=== PATIENT | male | born 1990 | race Caucasian/White ===

== ENCOUNTER 2021-06-06 09:58 | Outpatient (CLI) | payer OTHER, SELFPAY ==
--- NOTE | 2021-06-06 11:12 | NEURO ---
NCS and/or EMG Patient Report Ordering Doctor: Ag Winn DATE OF SERVICE: 06/06/21 Indication: History of left ulnar neuropathy across the elbow status post decompressive surgery. Now has intermittent numbness of the 4th and 5th digits on the right. Evaluate for ulnar neuropathy. Findings: Nerve conduction studies were performed in the right upper extremity. The right median motor study recording the abductor pollicis brevis showed a normal amplitude, normal distal latency and normal conduction velocity. The right ulnar motor study recording the abductor digiti minimi showed a normal amplitude, normal distal latency and normal conduction velocity. No conduction block or focal slowing was present across the elbow. The right ulnar motor study recording the first dorsal interosseous showed a normal amplitude, normal distal latency and normal conduction velocity. No conduction block or focal slowing was present across the elbow. The right median sensory response recording digit two showed a normal amplitude, latency and conduction velocity. The right ulnar sensory response recording digit five showed a normal amplitude, latency and conduction velocity. The right radial sensory response recording over the extensor snuff box showed a normal amplitude, latency and conduction velocity. Needle EMG of the right upper extremity and cervical paraspinal muscles was performed. No denervation was seen in any muscle. All motor unit morphology, activation and recruitment patterns were normal. Impression: This is a normal study. There is no electrophysiologic evidence of ulnar neuropathy across the elbow. In addition, there is no electrophysiologic evidence of a cervical radiculopathy or other entrapment neuropathy in the right upper extremity. Please note: electrodiagnostic testing may be unrevealing with symptoms are intermittent. Presumably, in these patients, compression results in pain and paresthesias from ischemia, but without any fixed demyelination or axonal loss that can be demonstrated on electrodiagnostic studies. Thus, clinical correlation is required in the interpretation of this negative study. Leonel Gupta D.O. Multi Select Codes Neurology Neurology Interp Codes: 23258-10 Musc test done w/n test comp (interp) and 35984-55 Nr cndj tst 5-6 studies (interp)
== END 2021-06-06 23:59 | disposition home or self-care (01) ==
LOC: PSN 10:08
PROVIDERS: Referring Provider Specialist; Visit Provider Specialist
DX: G56.21 Lesion of ulnar nerve, right upper limb (principal)
CPT/HCPCS: 95886; 95909

== ENCOUNTER 2024-02-04 20:36 | Emergency (ER) | payer OTHER, SELFPAY ==
[2024-02-04 20:37] VITALS: BP 160/76; PULSE 90; RESP 16; TEMP 37.9; O2SAT 95; BMI 24.6
--- NOTE | 2024-02-04 22:14 | RAD_ITS ---
STUDY: X-RAY CHEST REASON FOR EXAM: Male, 33 years old. chest pain TECHNIQUE: Single AP portable view of the chest. COMPARISON: 09/21/2010. FINDINGS: Normal lung volumes. Density in the right lung base seen consistent with pneumonia. Left lung is clear. Normal size heart. Normal mediastinum and diandra. Normal visualized pulmonary arteries. Normal visualized aortic arch and descending thoracic aorta. Normal visualized thoracic spine. Normal visualized ribs, clavicles, and shoulders. There is no demonstrated abnormality of the visualized soft tissue structures of the upper abdomen. RAD/Chest 1 View (Portable) IMPRESSION: Density in the right lung base seen consistent with pneumonia. Electronically Signed: Hugo Blakely MD at 22:47 EDT ,
[2024-02-04 22:28] LABS: Absolute Lymphocyte Count 0.87 X10^3/uL (0.83-4.51); Absolute Neutrophil Count 3.5 X10^3/uL (2.0-7.7); Basophil# 0.02 X10^3/uL; Basophil% 0.4 % (0-1); Hematocrit 42.3 % (40-54); Hemoglobin 14.8 g/dL (13.0-16.5); Lymphocyte # 0.87 X10^3/ul (0.83-4.51); Lymphocyte % 17.5 % (19-41); Mean Corpuscular Hgb 29.1 pg (27.0-32.0); Mean Corpuscular Volume 83.3 fL (80-94); Mean Platelet Vol. 11.1 fl (6.2-12.0); Monocyte# 0.56 X10^3/uL; Monocyte% 11.2 % (0-10); NRBC Flagged by Analyzer 0 % (0-5); Neutrophil # 3.52 X10^3/uL (2.7-7.7); Neutrophil % 70.7 % (47-70); Platelet Count 113 K/mm3 (150-450); RBC Distribution Width SD 39.6 fl (35.1-43.9); Red Blood Count 5.08 M/mm3 (4.6-6.2)
[2024-02-04 22:36] VITALS: BP 112/74; PULSE 78; RESP 18; TEMP 38.2; O2SAT 92
[2024-02-04 22:47] LABS: ALB/GLOB Ratio 0.8 RATIO (0.9-2.4); AST(SGOT) 41 U/L (15-37); Alanine Aminotransfer ALT/SGPT 26 U/L (16-61); Albumin, Serum 3.4 g/dL (3.2-5.0); Alkaline Phosphatase 54 U/L (45-117); Anion Gap 9 (5-15); BUN 14 mg/dL (7-18); BUN/Creat Ratio 12.3 RATIO (10-20); Calcium,Total 8.8 mg/dL (8.5-10.1); Chloride 96 mmol/L (98-107); Creatinine, Serum 1.14 mg/dL (0.70-1.30); EST Glomerular Filtration Rate 79 mL/min (>60); Est Glom Filt Rate - Afr Amer 96 mL/min (>60); Estimated Creatinine Clearance 96.05 ml/min; Globulin 4.1 g/dL (2.2-4.2); Glucose 115 mg/dL (74-106); Potassium 3.5 mmol/L (3.5-5.1); Protein, Total 7.5 g/dL (6.4-8.2); Sodium Level 132 mmol/L (136-145); Troponin-I HS 14 pg/mL (3.0-78.0)
[2024-02-04] MEDS: Ketorolac 30 MG/ML Syringe IV (23:04)
[2024-02-04] MEDS: 0.9% Normal Saline (1000mL) 1,000 ML 999 ML IV (23:04)
[2024-02-04] MEDS: Ondansetron 4 MG/2 ML Vial IV (23:04)
[2024-02-04] MEDS: Ceftriaxone 1 GM/50 ML BAG IV (23:04)
--- OUTSIDE RECORDS SUMMARY | 2024-02-04 23:14 | XMS RPT_ITS | CCD ---
Author Organization [facility] Care Team Providers Care Rn Quality Name Role Phone PHYSICIAN, NONE Primary Care Physician Unavailab le Allergies Allergy Classification Reported Allergen(s) Allergy Type Date of Onset Reaction(s) Facility (2 sources) Amoxicillin / Clavulanate; Translations: [amoxicillin-cla vulanate] Drug Allergy Swelling of throat [facility] Work Phone: (2 sources) Promethazine; Translations: [promethazine] Drug Allergy Swelling of throat [facility] Work Phone: Vital Signs Date Time Vital Sign Value Performing Clinician Faci lity 05-31-2021 14:50-0500 Diastolic Blood Pressure NBP [address] AMARIS KWAN MD [facility] 05-31-2021 14:50-0500 Heart rate 66 /min DR AMARIS KWAN MD [facility] 05-31-2021 14:50-0500 Respiratory rate 16 /min DR AMARIS KWAN MD [facility] 05-31-2021 14:50-0500 Systolic Blood Pressure NBP [address] AMARIS KWAN MD [facility] 05-31-2021 14:33-0500 Diastolic Blood Pressure NBP [address] AMARIS KWAN MD [facility] 05-31-2021 14:33-0500 Heart rate 68 /min DR AMARIS KWAN MD [facility] 05-31-2021 14:33-0500 Respiratory rate 13 /min DR AMARIS KWAN MD [facility] 05-31-2021 14:33-0500 Systolic Blood Pressure NBP [address] AMARIS KWAN MD [facility] 05-31-2021 14:20-0500 Diastolic Blood Pressure NBP [address] AMARIS KWAN MD [facility] 05-31-2021 14:20-0500 Heart rate 55 /min DR AMARIS KWAN MD [facility] 05-31-2021 14:20-0500 Respiratory rate 10 /min DR AMARIS KWAN MD [facility] 05-31-2021 14:20-0500 Systolic Blood Pressure NBP [address] AMARIS KWAN MD [facility] 05-31-2021 13:37-0500 Body temperature 32 [degF] DR AMARIS KWAN MD [facility] 05-31-2021 11:51-0500 Body height 180.[address] AMARIS KWAN MD [facility] 05-31-2021 11:51-0500 Body temperature 98.78 [degF] DR AMARIS KWAN MD [facility] 05-31-2021 11:51-0500 Body weight [address] AMARIS KWAN MD [facility] 05-31-2021 11:51-0500 Diastolic blood pressure 77 mm[Hg] DR AMARIS KWAN MD [facility] 05-31-2021 11:51-0500 Heart rate 62 /min DR AMARIS KWAN MD [facility] 05-31-2021 11:51-0500 Systolic blood pressure 133 mm[Hg] DR AMARIS KWAN MD [facility] 05-17-2021 12:47-0500 Body height 180.[address] AMARIS KWAN MD [facility] 05-17-2021 12:47-0500 Body weight [address] AMARIS KWAN MD [facility] 05-17-2021 12:47-0500 Body weight 23.07 kg/m2 DR AMARIS KWAN MD [facility] 05-17-2021 12:47-0500 diastolic 76 mm[Hg] DR AMARIS KWAN MD [facility] 05-17-2021 12:47-0500 Heart rate 56 /min DR AMARIS KWAN MD [facility] 05-17-2021 12:47-0500 Respiratory rate 20 /min DR AMARIS KWAN MD [facility] 05-17-2021 12:47-0500 systolic 122 mm[Hg] DR AMARIS KWAN MD [facility] Encounters Encounter Date Encounter Type Care Provider Facility Start: 05-31-2021 End: 05-31-[address] AMARIS KWAN MD [facility] Start: 05-17-2021 End: 05-17-[address] AMARIS KWAN MD [facility] Procedures Date Procedure Procedure Detail Performing Clinician Extraction of wisdom tooth D R AMARIS KWAN MD Tonsillectomy DR AMARIS MOTA MD Social History Date Type Detail Facility Start: 05-17-2021 Never smoked t obacco (finding) [facility] Sex Assigned At Male [facility] Evaluation + Plan note Note Date & Type Note Facility Evaluation + Plan note Future Appointments [facility] Hospital course Narrative Note Date & Type Note Facility Hospital course Narrative No data available for this section [facility] Discharge instructions Note Date & Type Note Facility Hospital Discharge instructions No data available for this section [facility] Additional Source Comments FOR RECORDS PERTAINING TO PATIENTS WHO ARE OR HAVE BEEN ENROLLED IN A CHEMICAL DEPENDENCY/SUBSTANCEABUSE PROGRAM, SOME INFORMATION MAY BE OMITTED. This clinical summary was aggregated from multiple sources. Caution should be exercised in using it in the provision of clinical care. This summary normalizes information from multiple sources, and as a consequence, information in this document may materially change the coding, format and clinical context of patient data. In addition, data may be omitted in some cases. CLINICAL DECISIONS SHOULD BE BASED ON THE PRIMARY CLINICAL RECORDS. [facility]. provides no warranty or guarantee of the accuracy or completeness of information in this document.
[2024-02-04 23:15] LABS: Squamous Epithelial Cells - UA 0 SEEN /hpf (0-5)
[2024-02-04 23:17] LABS: Color, Urine Yellow (Yellow); Glucose, Dipstick Normal (Normal); Ketone-Dipstick 5 mg/dl (Negative); Leukocyte Esterase-Dipstick 25 /ul (Negative); Nitrite-Dipstick Negative (Negative); Occult Blood-Urine 10 /ul (Negative); Protein-Dipstick 100 mg/dl (Negative); Urine Bilirubin Dipstick Negative (Negative); Urine Clarity Clear (Clear); Urine Urobilinogen 4 mg/dl (Normal)
[2024-02-04 23:22] LABS: Mucous, Urine 1+ /hpf (<or=2+)
[2024-02-04 23:23] LABS: Bacteria 1+ /hpf (None Seen); Calcium Oxalate Crystals Ur RARE /hpf (<or=2+); Red Blood Cells-Urine 0-5 SEEN /hpf (0-5); White Blood Cells 0-5 SEEN /hpf (0-5)
[2024-02-04] MEDS: Azithromycin 500 MG in Dextrose 5%-Water (250mL Bag) 250 ML 250 MG IV (23:52)
[2024-02-05] VITALS: BP 122/68; PULSE 77; RESP 18; TEMP 37.3; O2SAT 93
--- NOTE | 2024-02-05 00:38 | EX.ED.DYSGE1 ---
HPI History of Present Illness Chief Complaint: Nausea/Vomiting Informant: patient and spouse/S.O. 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 He reports that over the past 3 to 5 days he has had mild congestion and cough as well as bouts of nausea and vomiting and low-grade fever. He reports multiple children at school have been sick. He reports he has been taking Tylenol and Motrin for fever control but has been having recurrent bouts of vomiting and as his symptoms are not resolving presents for evaluation. PFSH PFSH no medical history Home Medications ?Medication ?Instructions ?Recorded ?Last Taken ?Type Allergy shots OTHER 07/26/23 Unknown History azithromycin 250 mg tablet See Rx Instructions PO .COMPLEX #6 02/05/24 Unknown Rx (Zithromax Z-Ravi) tabs ondansetron 4 mg disintegrating 4 mg PO TID PRN nausea and 02/05/24 Unknown Rx tablet vomiting #21 tabs Allergy/AdvReac Type Severity Reaction Status Date / Time Seasonal Allergies: Uncoded Allergy Mild unkown Verified 02/04/24 20:39 amoxicillin (From Augmentin) Allergy Unknown PT UNSURE Verified 02/04/24 20:39 OF REACTION clavulanic acid (From Allergy Unknown PT UNSURE Verified 02/04/24 20:39 Augmentin) OF REACTION Family History Mother Age: 54 Depression Hypertension Father Age: 61 Alcoholism Depression Hypertension Brother Age: 39 Alcoholism Depression Hypertension Brother Age: 30 Kidney disease Alcoholism Depression Hypertension Grandmother Age: 82 Anxiety CVA (cerebral vascular accident) Grandfather Depression Suicide attempt CVA (cerebral vascular accident) Grandmother Diabetes Alcoholism Depression Heart disease Mental disorder Suicide attempt Hypertension Surgical History H/O wisdom tooth extraction S/P vasectomy (06/14/22) History of surgery on arm (05/17/21) History of tonsillectomy (04/16/99) History of colonoscopy (04/16/15) Social History (Updated 07/26/23 @ 13:[address] 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/ [employer] current occupational exposures/hazards: No pets and animals: No history of recent travel: No sexually active: Yes Smoking Status: Never smoker Electronic Cigarette Use: not used how long ago did patient quit smoking: second hand exposure alcohol intake: former details: never heavy drinker substance use type: does not use caffeine: No perla/oriental orthodox: AGNOSTIC seatbelt use: always do you feel safe at home: Yes ROS ROS ED Constitutional Constitutional ED: Reports chills and fever(s) Eyes Eyes: Denies change in vision ENT ENT ED: Reports rhinorrhea and sore throat Cardiovascular Cardiovascular: Denies chest pain Respiratory/Chest Respiratory/Chest: Reports cough; Denies dyspnea Gastrointestinal Gastrointestinal: Reports abdominal pain, diarrhea, nausea and vomiting Genitourinary Genitourinary ED: Denies dysuria Musculoskeletal Musculoskeletal: Reports myalgias Integumentary Denies rash Neurologic Neurologic: Reports headache(s) Hematologic/Lymphatic Hematologic/Lymphatic: Denies easy bleeding or easy bruising Allergic/Immunologic Allergic/Immunologic ED: Denies mouth swelling or tongue swelling EXAM Physical Exam Const Vital Signs: 02/04/24 20:37 02/04/24 22:36 02/04/24 22:52 Temperature 100.2 F H 100.7 F H Temperature Source Oral Oral Pulse Rate 90 78 Respiratory Rate 16 18 Respiratory Effort Normal Respiratory Depth Normal Respiratory Pattern Normal Blood Pressure 160/76 H 112/74 Blood Pressure Mean 104 86 Pulse Ox 95 92 Oxygen Delivery Method Room Air Room Air Room Air 02/05/24 00:00 Temperature 99.2 F H Temperature Source Oral Pulse Rate 77 Respiratory Rate 18 Respiratory Effort Respiratory Depth Respiratory Pattern Blood Pressure 122/68 H Blood Pressure Mean 86 Pulse Ox 93 Oxygen Delivery Method Room Air Positive well nourished and well developed General Appearance ED: well developed; Negative for pallor HEENT Reports dry mucous membranes HEENT Narrative: Mucous membranes are dry and tacky No tongue or lip swelling no oral lesions no airway edema or compromise No secondary findings in the posterior pharynx to suggest infection Mouth ED: Yes dry mucous membranes Mouth: dry mucous membranes Eyes PERRL and EOMs intact bilaterally General Eye ED: Negative for scleral icterus Neck supple Neck Narrative: No nuchal rigidity or meningeal signs noted Chest Wall palpation of chest normal Resp normal respiratory effort Resp Narrative: Breath sounds are slight diminished throughout with faint rhonchi noted in the bilateral lower lobes greatest on the right but no signs of respiratory distress Cardio regular rate and regular rhythm GI non-distended and no masses GI Narrative: Abdomen is soft and nondistended with hyperactive bowel sounds. Patient has mild pain with palpation in the right upper quadrant but no voluntary guarding or rigidity. Negative Ladd sign. No pulsatile mass Auscultation: hyperactive bowel sounds Palpation: soft Extremity normal to inspection Extremity Narrative: No asymmetric edema no pitting edema negative Homans' sign bilaterally Neuro oriented x3, CN's II-XII intact bilaterally and no sensory deficits noted Sensorium / Orientation: alert Motor Exam: strength 5/5 throughout Psych mental status grossly normal Skin no rashes or lesions noted and skin turgor normal General Skin Exam: Negative for jaundice or pallor MDM MDM MDM Narrative Medical decision making narrative: Patient arrived to ER with low-grade fever and his constellation of symptoms could be related to pneumonia versus a viral infection such as COVID versus influenza versus RSV. There is also concern this could be stomach in nature such as biliary colic versus acute cholecystitis. As he does show physical exam findings for mild dehydration there is also concern for acute kidney injury or severe electrolyte abnormality. Basic labs were obtained and revealed no clinically significant finding. Chest x-ray revealed a right lower lobe infiltrate which could also cause his GI issues and right upper quadrant pain and his COVID test was positive indicating this is most likely COVID-pneumonia. However as COVID typically has a groundglass appearance and this is localized to the right lower lobe and the patient is around school-aged children there is also concern he may have secondary mycoplasma. Therefore I do feel would be appropriate to place him on a Zithromax secondary to this but as he does not have any medical history he is not qualified for Paxlovid. At this time he is not hypoxic or in respiratory distress he does not have physical exam or laboratory findings concerning for septicemia and we have a reason for his symptoms and therefore he is otherwise safe for discharge with symptomatic care History & Record Review Discussion w/independent historian: Patient and Significant other Lab Data Attestation: I reviewed the patient's lab results. Labs: Laboratory Results - last 24 hr 02/04/24 02/04/24 20:55 23:10 WBC 5.0 RBC 5.08 Hgb 14.8 Hct 42.3 MCV 83.3 MCH 29.1 MCHC 35.0 RDW Std Deviation 39.6 RDW Coeff of [place] 13.0 Plt Count 113 L MPV 11.1 Immature Gran % (Auto) 0.200 Neut % (Auto) 70.7 H Lymph % (Auto) 17.5 L [place] % (Auto) 11.2 H Eos % (Auto) 0.0 Baso % (Auto) 0.4 Absolute Neuts (auto) 3.5 Absolute Lymphs (auto) 0.87 Nucleated RBC % 0 Sodium 132 L Potassium 3.5 Chloride 96 L Carbon Dioxide 27.0 Anion Gap 9 BUN 14 Creatinine 1.14 Estim Creat Clear Calc 96.05 Est GFR (MDRD) Af Amer 96 Est GFR (MDRD) Non-Af 79 BUN/Creatinine Ratio 12.3 Glucose 115 H Calcium 8.8 Total Bilirubin 0.40 AST 41 H ALT 26 Alkaline Phosphatase 54 Troponin I High Sens 14 Total Protein 7.5 Albumin 3.4 Globulin 4.1 Albumin/Globulin Ratio 0.8 L Urine Color Yellow Urine Clarity Clear Urine pH 6.0 Ur Specific [place] 1.020 Urine Protein 100 H Urine Glucose (UA) Normal Urine Ketones 5 H Urine Occult Blood 10 H Urine Nitrite Negative Urine Bilirubin Negative Urine Urobilinogen 4 H Ur Leukocyte Esterase 25 H Urine RBC 0-5 SEEN Urine WBC 0-5 SEEN Ur Squamous Epith Cells 0 SEEN Calcium Oxalate Crystal RARE Urine Bacteria 1+ Urine Mucus 1+ Radiography Diagnostic Testing: Clinical Impression(s) from Imaging Studies Chest X-Ray 02/04/24 22:14 IMPRESSION: Density in the right lung base seen consistent with pneumonia. Electronically Signed: Hugo Blakely MD at 22:47 EDT , Chest x-ray as interpreted by the emergency medicine physician reveals haziness in the right lower lobe consistent with pneumonia Discharge Plan Triage Chief Complaint: Nausea/Vomiting ED Provider: Benji Palacios Dx/Rx/DC Orders Clinical Impression: COVID-19, Right lower lobe pneumonia, Pyrexia, Mild dehydration Instructions: Coronavirus Disease 2019 (COVID-19): Caring for Yourself or Others, ED Pneumonia (Adult) Prescriptions: New azithromycin [Zithromax Z-Ravi] 250 mg tablet See Rx Instructions .ROUTE .COMPLEX Qty: 6 0RF Rx Instructions: For 250 mg dose pack: take 500 mg today (day 1), then 250 mg for 4 days (days 2-5) ondansetron 4 mg tablet,disintegrating 4 mg PO TID PRN (Reason: nausea and vomiting) Qty: 21 0RF No Action Allergy shots OTHER Primary Care Provider: Genevieve Hercules Referrals: Genevieve Hercules MD [Primary Care Provider] - Print Language: Macedonian Disposition Disposition: Home, Self Care Discharge Date/Time: 02/05/24 01:54
[2024-02-05 01:51] VITALS: BP 121/7; PULSE 74; RESP 18; TEMP 37.7; O2SAT 98
== END 2024-02-05 01:54 | disposition home or self-care (01) ==
PROVIDERS: Emergency Provider Emergency Medicine; PCP Internal Medicine; Visit Provider Emergency Medicine
DX: U07.1 COVID-19 (principal); J12.82 Pneumonia due to coronavirus disease 2019; E86.0 Dehydration; Z88.0 Allergy status to penicillin; Z88.1 Allergy status to other antibiotic agents
CPT/HCPCS: 71045; 80053; 81001; 84484; 85025; 87631; 96365; 96366; 96374; 96375; 99284; J7030; A4216; J2405

== ENCOUNTER 2024-12-17 12:25 | Day surgery (SDC) | payer OTHER, SELFPAY ==
[2024-12-17] VITALS (8 sets, daily range): BP systolic 113–148; BP diastolic 60–84; PULSE 60–80; RESP 16–18; TEMP 36.1–36.5; O2SAT 89–100; BMI 25.2
[2024-12-17] MEDS: Lactated Ringers 1,000 ML 15 ML IV (12:56)
--- NOTE | 2024-12-17 13:13 | PCM.PRE.AN2 ---
ASA Classification* ASA Classification ASA Classification: 1 Assessment & Plan Anesthesia* Anesthesia Assessment Anesthesia Assessment: Discussed sedation and/or anesthesia options, risks, benefits, and alternatives with patient/parents/legal guardian/POA. Questions invited. The patient/parents/legal guardian/POA seems to understand and agrees to proceed with anesthesia plan. Reviewed the physical assessment, medical history, allergy history and patient home medications list prior to surgery/procedure/anesthetic and documented any changes. Performed airway and anesthesia risk assessments. Anesthesia Type Anesthesia Type: General History Source History Obtained from:: Patient and Chart Anesthesia Focused Assessment* Temperature: 97.6 F Pulse Rate: 65 Blood Pressure: 113/81 Respiratory Rate: 16 Pulse Ox: 98 Airway Assessment Mouth opens: >3 cm Mallampati Score: II Teeth Condition: Intact Neck Range of motion (ROM): Full ROM Labs Anesthesia Preop lab: CBC WBC 5.0 K/mm3 (4.4-11.0) 02/04/24 20:55 02/04/24 RBC 5.08 M/mm3 (4.6-6.2) 02/04/24 20:55 02/04/24 Hgb 14.8 g/dL (13.0-16.5) 02/04/24 20:55 02/04/24 Hct 42.3 % (40-54) 02/04/24 20:55 02/04/24 Plt Count 113 K/mm3 (150-450) L 02/04/24 20:55 02/04/24 CHEMISTRY Potassium 3.5 mmol/L (3.5-5.1) 02/04/24 20:55 02/04/24 Sodium 132 mmol/L (136-145) L 02/04/24 20:55 02/04/24 BUN 14 mg/dL (7-18) 02/04/24 20:55 02/04/24 Creatinine 1.14 mg/dL (0.70-1.30) 02/04/24 20:55 02/04/24 Glucose 115 mg/dL (74-106) H 02/04/24 20:55 02/04/24 COAG Pre-Assessment Diagnosis/Proposed Procedure Planned Operative Procedure(s): OPEN UMBILICAL HERNIA REPAIR Anesthesia History Anesthesia History - supervisor contact and service clerks: Anesthesia History - supervisor contact and service clerks Hx Hospitalization No 12/08/24 13:18 Any Problems With Anesthesia No 12/08/24 13:18 Cholinesterase deficiency No 12/08/24 13:18 You/Your Family Experience No 12/08/24 13:18 fever (hyperthermia) with Relationship Recent Exposure to Contagious No 12/17/24 12:46 Disease Does patient have nerve No 12/08/24 13:18 stimulator Patient instructed to have device shut off --Does patient have Pacemaker No 12/17/24 12:46 or ICD? When Was Last Pacemaker Check QUESTION #4 FULL TEXT: You/Your Family Experience fever (hyperthermia) with Anesthesia Last Oral Intake Last Oral intake: Last Oral Intake NPO since 19:00 12/17/24 12:46 Meds taken in AM with sips of No 12/17/24 12:46 water? Meds patient instructed to take am of surgery PONV PONV - supervisor contact and service clerks: PONV - supervisor contact and service clerks Female No 12/08/24 13:18 HX of Motion Sickness Yes 12/08/24 13:18 HX of N/V After Surgery No 12/08/24 13:18 Non-Smoker Yes 12/08/24 13:18 Duration of Surgery greater No 12/08/24 13:18 than 60 minutes Number of Risk Factors 2 12/08/24 13:18 PONV Score Moderate Risk 12/08/24 13:18 Height & Weight Height & Weight: Anesthesia: Height & Weight Height 5 ft 10.08 in 12/17/24 12:46 Weight: 80 kg 12/17/24 12:46 Body Mass Index (BMI) 25.2 12/17/24 12:46 Respiratory Assessment Respiratory Assessment - supervisor contact and service clerks: Respiratory Tract Infection Hx - supervisor contact and service clerks Hx Respiratory Tract Infection No 12/08/24 13:18 STOP Sleep Apnea STOP Sleep Apnea - supervisor contact and service clerks: STOP Sleep Apnea - supervisor contact and service clerks Hx Hypertension No 12/08/24 13:18 Hx Sleep Apnea No 12/08/24 13:18 CPAP BIPAP Do you snore loudly (louder No 12/08/24 13:18 than talking or can be heard Do you often feel tired/ No 12/08/24 13:18 fatigued/ sleepy during daytime? Has anyone observed you stop No 12/08/24 13:18 breathing during sleep? STOP Results Negative 12/08/24 13:18 QUESTION #5 FULL TEXT : Do you snore loudly (louder than talking or can be heard through closed doors)? Tobacco Use History Tobacco Use History - supervisor contact and service clerks: Tobacco Use History - supervisor contact and service clerks Tobacco Use Smoking Status Never smoker 12/08/24 13:18 Hx Tobacco Use No 12/08/24 13:18 Years Smoking Packs Smoked per Day Smoking Cessation Date was within the last 15 years Hx Smoking Cessation Date Hx Smoking Cessation Counseling Hematologic Medial History Hematologic Hx - supervisor contact and service clerks: Hematologic Medical Hx - financial services auditor Hx of Blood Transfusion No 12/08/24 13:18 Hx of Transfusion in last 3 No 12/08/24 13:18 Months Date of Last Transfusion (if within last 3 months) Ever experience any problems No 12/08/24 13:18 with transfusion(s)? Specify any problems Hx of Preganancy in last 3 N/A 12/08/24 13:18 Months Nurse Filling Out Transfusion DSCHRIBER 12/08/24 13:18 & Questions: Date: 12/08/24 12/08/24 13:18 Time: 13:19 12/08/24 13:18 Patient unable to answer at this time (ie. confused, unrespo /Reproduction History /Reproductive History - supervisor contact and service clerks: /Reproductive Hx- supervisor contact and service clerks Hx Now No 12/08/24 13:18 Gestational Age (in weeks): EDC: Hx Hx Para Hx Section SAB No 12/08/24 13:18 Active Medications Active Medications: Current Medications Generic Name Dose Route Start Last Admin Trade Name Freq PRN Reason Stop Dose Admin Lactated Ringer's 1,000 mls @ 15 mls/hr 12/17/24 12:45 12/17/24 12:56 IV 15 mls/hr .Q48H BING Administration PFSH Medical History (Updated 12/08/24 @ 13:16 by Suzy Barroso) Wears glasses Non-smoker Anxiety Home Medications ?Medication ?Instructions ?Recorded ?Last Taken ?Type CREATINE 5 mg PO DAILY 12/08/24 Unknown History Whey PROTEIN 1 tbsp PO DAILY 12/08/24 Unknown History Allergy/AdvReac Type Severity Reaction Status Date / Time Seasonal Allergies: Uncoded Allergy Mild unkown Verified 12/08/24 13:09 amoxicillin (From Augmentin) Allergy Unknown PT UNSURE Verified 12/08/24 13:09 OF REACTION clavulanic acid (From Allergy Unknown PT UNSURE Verified 12/08/24 13:09 Augmentin) OF REACTION Family History Mother Age: 55 Depression Hypertension Father Age: 63 Alcoholism Depression Hypertension Brother Age: 40 Alcoholism Depression Hypertension Brother Age: 31 Kidney disease Alcoholism Depression Hypertension Grandmother Age: 83 Anxiety CVA (cerebral vascular accident) Grandfather Depression Suicide attempt CVA (cerebral vascular accident) Grandmother Diabetes Alcoholism Depression Heart disease Mental disorder Suicide attempt Hypertension Surgical History (Updated 12/08/24 @ 13:16 by Suzy Barroso) H/O wisdom tooth extraction S/P vasectomy (06/14/22) History of surgery on arm (05/17/21) History of tonsillectomy (04/16/99) History of colonoscopy (04/16/15) Social History (Updated 12/05/24 @ 13:09 by Racquel March) adopted: No household members: family housing: house current occupational status: employed current occupational exposures/hazards: No pets and animals: No history of recent travel: No sexually active: Yes Smoking Status: Never smoker Electronic Cigarette Use: not used how long ago did patient quit smoking: second hand exposure alcohol intake: former details: never heavy drinker substance use type: does not use caffeine: No perla/nondenominational: AGNOSTIC seatbelt use: always do you feel safe at home: Yes Review of Systems (Anesthesia) ROS Narrative System reviewed and no additional complaints, except as documented. Physical Exam Const alert, oriented x3 and average body habitus Resp normal respiratory effort, normal air movement and clear to auscultation bilaterally Cardio regular rate, regular rhythm and no murmurs
--- NOTE | 2024-12-17 13:33 | PCM.HP.STD ---
HPI - General General Date of Admission: 12/17/24 Date of Service: 12/17/24 Chief Complaint: Umbilical hernia HPI Narrative ANDIE CARUSO, is a 34 M who presents for repair of a small umbilical hernia [facility] Medical History (Updated 12/08/24 @ 13:16 by Suzy Barroso) Wears glasses Non-smoker Anxiety Home Medications ?Medication ?Instructions ?Recorded ?Last Taken ?Type CREATINE 5 mg PO DAILY 12/08/24 Unknown History Whey PROTEIN 1 tbsp PO DAILY 12/08/24 Unknown History Allergy/AdvReac Type Severity Reaction Status Date / Time Seasonal Allergies: Uncoded Allergy Mild unkown Verified 12/08/24 13:09 amoxicillin (From Augmentin) Allergy Unknown PT UNSURE Verified 12/08/24 13:09 OF REACTION clavulanic acid (From Allergy Unknown PT UNSURE Verified 12/08/24 13:09 Augmentin) OF REACTION Family History Mother Age: 55 Depression Hypertension Father Age: 63 Alcoholism Depression Hypertension Brother Age: 40 Alcoholism Depression Hypertension Brother Age: 31 Kidney disease Alcoholism Depression Hypertension Grandmother Age: 83 Anxiety CVA (cerebral vascular accident) Grandfather Depression Suicide attempt CVA (cerebral vascular accident) Grandmother Diabetes Alcoholism Depression Heart disease Mental disorder Suicide attempt Hypertension Surgical History (Updated 12/08/24 @ 13:16 by Suzy Barroso) H/O wisdom tooth extraction S/P vasectomy (06/14/22) History of surgery on arm (05/17/21) History of tonsillectomy (04/16/99) History of colonoscopy (04/16/15) Social History (Updated 12/05/24 @ 13:09 by Racquel March) adopted: No household members: family housing: house current occupational status: employed current occupational exposures/hazards: No pets and animals: No history of recent travel: No sexually active: Yes Smoking Status: Never smoker Electronic Cigarette Use: not used how long ago did patient quit smoking: second hand exposure alcohol intake: former details: never heavy drinker substance use type: does not use caffeine: No perla/presybeterian: AGNOSTIC seatbelt use: always do you feel safe at home: Yes Vital Signs Vital Signs Vital Signs: 12/17/24 12:46 12/17/24 12:46 12/17/24 13:14 Temperature 97.6 F L 97.6 F L Temperature Source Temporal Pulse Rate 65 65 Respiratory Rate 16 16 Respiratory Pattern Normal Blood Pressure 113/81 H 113/81 H Blood Pressure Mean 91 Pulse Ox 98 98 Oxygen Delivery Method Room Air Weight Weight: 176 lb 5.917 oz Body Mass Index (BMI) 25.2 Physical Exam Const alert, oriented x3 and no apparent distress Assessment & Plan Assessment/Plan (1) Umbilical hernia: PLAN: Plan Plan for umbilical hernia repair surgery without mesh
[2024-12-17] MEDS: Midazolam 2 MG/2 ML Syringe IV (13:41)
[2024-12-17] MEDS: Lactated Ringers 1,000 ML 1000 ML IV (13:41)
[2024-12-17] MEDS: fentaNYL 100 MCG/2 ML Ampul IV (13:48)
[2024-12-17] MEDS: Lidocaine 1% (5 ml sdv) 5 ML Vial IV (13:48)
[2024-12-17] MEDS: Bupiv/Epi 0.25% 30 ML Vial (13:57)
--- NOTE | 2024-12-17 14:44 | EX.PCM.DISCH ---
Discharge Instructions Diet Discharge Diet: Light diet - advance as tolerated Activity Discharge Activity: Return to Normal Activity and May Shower May shower in (days): 1 Ice area for (Minutes): 30 Lifting Restrictions: No lifting pushing or pulling more than 20 pounds for 6 weeks Dressing / Incision Call your doctor if your incision/area has: Continuous Slow Oozing, Sudden Increased Bleeding, Increased Pain/ Swelling, Increased Redness, Foul Smelling Discharge and Swelling at the incision site Call your doctor if you observe: Fever of 101 or Higher Cleanse incision/area with: Soap & Water Follow Up Care Please Follow Up With: Ag Altamirano MD When: 2 weeks. Please call office to schedule appointment. Test Results: Test results from this visit will be discussed in further detail at your follow-up appointment, if applicable. Discharge Plan Admission Primary Reason for Your Visit: Umbilical hernia repair Attending Provider: Ag Altamirano Primary Care Provider: Genevieve Hercules Instructions Print Language: Prydeinig Discharge Orders/Prescriptions Prescriptions: Continued CREATINE 5 mg PO DAILY Whey PROTEIN 1 tbsp PO DAILY Referrals / Follow Up: Genevieve Hercules MD [Primary Care Provider] - Disposition Disposition (needs filled in before D/C Order can be placed): Home, Self Care
--- NOTE | 2024-12-17 14:44 | PCM.POST.ANE ---
Anesthesia: Postop Eval I Current Vital Signs Temperature: 97.4 F Pulse Rate: 79 Blood Pressure: 120/60 Respiratory Rate: 16 Pulse Ox: 93 Oxygen Delivery Method: Room Air Assessment Airway patent: Yes Spontaneous unlabored respirations: Yes Mental status: Asleep nausea: No Vomiting: No Anesthesia Complication: No Fluid Hydration Crystalloid volume administer (ml): 900 Total IV fluid infused: 900 Progress Note Anesthesia document: Postop Eval 1 completed: Yes
--- NOTE | 2024-12-17 14:48 | OP.PCM_ITS ---
Problems Associated Problem List Diagnoses (1) Umbilical hernia: Procedures Digestive [id number]-49xxx: 38934 RPR AA HRN 1ST < 3 CM [facility] Operative Report (Standard) Operative Information Date of Procedure: 12/17/24 Pre-Operative Diagnosis: Umbilical hernia Post-Operative Diagnosis: Umbilical hernia Surgery/Procedure Performed: Open primary repair of umbilical hernia child care supervisor: Yes Collar Baster Jumpbasting: Dede Mayo Tasks completed by first mate: Closing and Retracting Additional staff physical therapy assistant?: No Type of Anesthesia: General and Local RN Documented Start/Stop Times: Operation Date: 12/17/24 14:00 Case Time Into Pre-Op 12/17/24 12:40 Out of Pre-Op 12/17/24 13:38 Anesthesia Start 12/17/24 13:41 Into Room 12/17/24 13:41 Procedure Start 12/17/24 13:57 Procedure End 12/17/24 14:30 Anesthesia End 12/17/24 14:37 Out of Room 12/17/24 14:37 Into Recovery 12/17/24 14:40 Procedure Start Time: 13:57 Procedure Stop Time: 14:30 Select all DRAINS/GRAFTS/IMPLANTS that apply: None Estimated Blood Loss: 5 mL Specimen collected: No Description of surgery: The patient is a 34-year-old male recently seen through the office with a small umbilical hernia. Fascial defect size was less than a centimeter. I felt that this was appropriate for an open repair without mesh. We discussed the details of the planned procedure and he wished to proceed. He was brought to the operating room today following informed consent. He was placed supine the operative table with arms outstretched and arm boards. The abdomen was then prepped and draped in the usual sterile manner. A curvilinear incision was made around the inferior aspect of the umbilicus after injecting local anesthetic. Bovie electrocautery was then used to dissect down through the subcutaneous tissues. The skin of the umbilicus was encircled using finger dissection as well as dissection with a Kylee clamp. The skin of the umbilicus was then detached from the underlying hernia sac. The hernia sac was excised and the fascial defect edges were cleared. The fascial defect was about a centimeter slightly larger. This was certainly less than 2 cm which made primary repair appropriate. This was then closed with 0 Nurolon placed in interrupted manner. This closed the fascial defect nicely. 3-0 Vicryl was then used to reapproximate the skin of the umbilicus to the underlying fascia. 3-0 Vicryl was also used to reapproximate the subdermal layer. 4-0 Vicryl was run on the skin. Skin glue was applied as dressing. 2 x 2 along with gauze and OpSite's were applied. Abdominal binder was also placed. He was awakened anesthesia and taken recovery in good condition. Surgical Findings: 1 cm fascial defect. Fat-containing hernia Complications Complications: No Admit VTE Documentation VTE Present on Admission: No VTE Mechan Device Prophylaxis: SCD's VTE Pharm Prophylaxis ordered?: No Reason prophylaxis not ordered: Treatment Not Indicated
--- NOTE | 2024-12-17 15:15 | POSTOPAN2_ITS ---
Anesthesia Postop Eval I Sum Postop Eval Completion status Anesthesia document: Postop Eval 1 completed: Yes Anesthesia Postop Eval I Summary Anesthesia Postop Eval I Summary: Anesthesia Postop Eval I: Assessment Summary Airway patent Yes 12/17/24 14:45 [email or web address] Spontaneous unlabored Yes 12/17/24 14:45 [email or web address] respirations Mental status Asleep 12/17/24 14:45 [email or web address] nausea No 12/17/24 14:45 CUTTER [email or web address] Vomiting No 12/17/24 14:45 [email or web address] Anesthesia Postop Eval I: Fluid Summary Crystalloid volume administer 900 12/17/24 14:45 [email or web address] (ml) Colloids volume administered ( ml) Blood Product volume administered (ml) Total IV fluid infused 900 12/17/24 14:45 [email or web address] Anesthesia Postop Eval I: Summary Notes Anesthesia Complication No 12/17/24 14:45 [email or web address] Anesthesia Complication Comment: Post-operative progress note Anesthesia: Postop Eval II Evaluation Mental status: Awake Pain Level: 0 nausea: No Vomiting: No Complications Anesthesia Complication: No
--- NOTE | 2024-12-17 15:15 | PCM.POSTANE2 ---
Anesthesia Postop Eval I Sum Postop Eval Completion status Anesthesia document: Postop Eval 1 completed: Yes Anesthesia Postop Eval I Summary Anesthesia Postop Eval I Summary: Anesthesia Postop Eval I: Assessment Summary Airway patent Yes 12/17/24 14:45 [email or web address] Spontaneous unlabored Yes 12/17/24 14:45 [email or web address] respirations Mental status Asleep 12/17/24 14:45 [email or web address] nausea No 12/17/24 14:45 [email or web address] Vomiting No 12/17/24 14:45 [email or web address] Anesthesia Postop Eval I: Fluid Summary Crystalloid volume administer 900 12/17/24 14:45 [email or web address] (ml) Colloids volume administered ( ml) Blood Product volume administered (ml) Total IV fluid infused 900 12/17/24 14:45 [email or web address] Anesthesia Postop Eval I: Summary Notes Anesthesia Complication No 12/17/24 14:45 [email or web address] Anesthesia Complication Comment: Post-operative progress note Anesthesia: Postop Eval II Evaluation Mental status: Awake Pain Level: 0 nausea: No Vomiting: No Complications Anesthesia Complication: No
--- OUTSIDE RECORDS SUMMARY | 2024-12-17 22:56 | XMS RPT_ITS | CCD ---
Author Organization [facility] Care Team Providers Care Insulation Board Back Tender Name Role Phone PHYSICIAN, NONE Primary Care Physician Unavailab ania Hercules MD, Dr. Vallejo Primary Care Provider Diomedes OLIVEIRA, Dr. Vallejo Attending Provider Diomedes OLIVEIRA, Dr. Vallejo Referring Provider Adarsh OLIVEIRA, Dr. Ag Yousif Attending Provider [place], Genevieve Primary Care Unavailable Diomedes, Genevieve Referring Unavailable Diomedes, Genevieve Attending Unavailable Benji Palacios Attending Unavailable [place], Genevieve Primary Care Unavailable Diomedes, Genevieve Primary Care Unavailable Ag Altamirano Referring Unavailable Ag Altamirano Attending Unavailable [place], Genevieve Primary Care Unavailable Ag Altamirano Attending Unavailable [place], Genevieve Referring Unavailable Adarsh OLIVEIRA, Dr. Ag Yousif Referring Provider Adarsh OLIVEIRA, Dr. Ag Yousif Other Provider [phone] Allergies Allergy Classification Reported Allergen(s) Allergy Type Date of Onset Reaction(s) Facility (2 sources) Amoxicillin / Clavulanate; Translations: [amoxicillin-cl avulanate] Drug Allergy Swelling of throat [facility] (2 sources) Promethazine; Translations: [promethazine] Drug Allergy Swelling of throat [facility] (3 sources) Amoxicillin Drug Allergy 5 PT UNSURE OF REACTION [facility] Comment on above: as child (3 sources) Clavulanate Drug Allergy 5 PT UNSURE OF REACTION [facility] Comment on above: as child (4 sources) Seasonal Allergies: Uncoded; Translations: [Seasonal Allergies: Uncoded] Allergy to substance 5 unkown [facility] (1 source) Amoxicillin Drug Allergy [facility] Repository (1 source) Clavulanate Drug Allergy [facility] Repository Medications Current Medications Medication Drug Class(es) Dates Sig (Normalized) Sig (Original) Creatine (1 source) Start: 2024 take 5 mg by mouth once daily CREATINE Active 5 mg PO DAILY 2024 12:00am Whey PROTEIN (1 source) Start: 2024 Whey PROTEIN Active 1 tbsp PO DAILY 2024 12:00am Completed/Discontinued Medications Medication Drug Class(es) Dates Sig (Normalized) Sig (Original) Allergy shots (3 sources) Start: 07-26-2023 End: 2024 Allergy shots Discontinued OTHER July 26, 2023 12:00am 2024 1:23pm Start: 07-26-2023 Allergy shots Active OTHER July 26, 2023 12:00am azithromycin 250 mg oral tablet (3 sources) Macrolide Antimicrobial Start: 02-05-2024 End: 12-01-2024 Azithromycin (Zithromax Z-Ravi) 250 mg tablet Discontinued 0 PO .COMPLEX 6 0 February 05, 2024 12:00am December 01, 2024 10:56am For 250 mg dose pack: take 500 mg today (day 1), then 250 mg for 4 days (days 2-5) Creatine Monohydrate 5,000 mg powder in packet (2 sources) Start: 12-05-2024 End: 2024 Creatine Monohydrate 5,000 mg powder in packet Discontinued mg PO December 05, 2024 12:00am 2024 1:23pm Start: 12-05-2024 Creatine Monoh ydrate 5,000 mg powder in packet Active mg PO December 05, 2024 12:00am ondansetron 4 mg disintegrating oral tablet (3 sources) Serotonin-3 Receptor Antagonist Start: 02-05-2024 End: 12-01-2024 take 1 tablet by mouth three times daily as needed for nausea and vomiting Ondansetron 4 mg tablet,disintegrating Discontinued 4 mg PO THREE TIMES A DAY as needed for nausea and vomiting 21 0 February 05, 2024 12:41am December 01, 2024 10:56am Problems Active Problems Problem Classification Problem Date Documented Date Episodic/Chronic Abdominal hernia (12 sources) Umbilical hernia without obstruction AND without gangrene ; Translations: [Umbilical hernia] Onset: 12-05-2024 Episodic Fever of unknown origin (3 sources) Fever; Translations: [Fever, unspecified] 02-13-2024 Episodic Fluid and electrolyte disorders (3 sources) Mild dehydration; Translations: [Dehydration] 02-13-2024 Episodic Other screening for suspected conditions (not mental disorders or infectious disease) (4 sources) Patient encounter status; Translations: [Encounter for screening for cardiovascular disorders] 12-01-2024 Episodic Other upper respiratory disease (3 sources) Seasonal allergy; Translations: [Other seasonal allergic rhinitis] 12-01-2024 Chronic Pneumonia (except that caused by tuberculosis or sexually transmitted disease) (3 sources) Right lower zone pneumonia; Translations: [Pneumonia, unspecified organism] 02-13-2024 Episodic Unclassified (6 sources) K42.9 - Umbilical hernia without obstruction or gangrene Viral infection (3 sources) Disease caused by 2019-nCoV; Translations: [COVID-19] 02-05-2024 Episodic Past or Other Problems Problem Classification Problem Date Documented Da te Episodic/Chronic Allergic reactions (3 sources) Allergic condition; Translations: [Allergy, unspecified, initial encounter] Onset: 1990 07-26-2023 Episodic Nausea and vomiting (1 source) Nausea with vomiting, unspecified; Translations: [Nausea with vomiting, unspecified] Onset: 02-27-2024 Episodic Results Test Name Value Interpretation Reference Range Facil ity Surgery Visit Reporton 12-05 Surgery Visit Report [facility] [address] [place] [address] OFFICE VISIT Date of Service: 12/05/24 MR#: [id number] Acct: [id number] Name: ANDIE CARUSO Rep #: [id number] : 1990 Provider: Dr. Ag abbott MD Age/Sex: 33/M Location: [facility] Status: Signed Intake Vital Signs 12/01/24 10:52 12/05/24 13:09 Height 5 ft 10 in 5 ft 10 in Weight: 179 lb 6 oz 179 lb BMI 25.7 25.7 BP 112/62 154/78 H Blood Pressure Location Rt brachial Rt brachial Position Sitting Sitting Respiration 16 17 Pulse 45 L 65 Pulse Source Monitor Monitor Temp 96.4 F L Temp Source Temporal Pulse Oximetry (%) 98 99 Oxygen Delivery Method room air room air Intake Visit Reasons: UMBILICAL HERNIA Chief Complaint: hernia check Is patient in pain?: No Allergies Seasonal Allergies: Uncoded Allergy (Mild, Verified 12/05/24 13:10) unkown amoxicillin (From Augmentin) Allergy (Unknown, Verified 12/05/24 13:10) PT UNSURE OF REACTION clavulanic acid (From Augmentin) Allergy (Unknown, Verified 12/05/24 13:10) PT UNSURE OF REACTION Medications ???Medication ???Instructions ???Recorded ???Confirmed ???Type Allergy shots OTHER 07/26/23 12/05/24 History creatine monohydrate 5,000 mg oral mg PO 12/05/24 12/05/24 History powder packet PFSH Medical History (Updated 12/05/24 @ 13:09 by Racquel March) Anxiety Surgical History H/O wisdom tooth extraction S/P vasectomy (06/14/22) History of surgery on arm (05/17/21) History of tonsillectomy (04/16/99) History of colonoscopy (04/16/15) Family History Mother Age: 55 Depression Hypertension Father Age: 63 Alcoholism Depression Hypertension Brother Age: 40 Alcoholism Depression Hypertension Brother Age: 31 Kidney disease Alcoholism Depression Hypertension Grandmother Age: 83 Anxiety CVA (cerebral vascular accident) Grandfather Depression Suicide attempt CVA (cerebral vascular accident) Grandmother Diabetes Alcoholism Depression Heart disease Mental disorder Suicide attempt Hypertension Social History (Updated 12/05/24 @ 13:09 by Racquel March) adopted: No household members: family housing: house current occupational status: employed current occupational exposures/hazards: No pets and animals: No history of recent travel: No sexually active: Yes Smoking Status: Never smoker Electronic Cigarette Use: not used how long ago did patient quit smoking: second hand exposure alcohol intake: former details: never heavy drinker substance use type: does not use caffeine: No perla/religious: AGNOSTIC seatbelt use: always do you feel safe at home: Yes HPI HPI HPI: The patient is a 33-year-old male who is being seen today for evaluation of a possible umbilical hernia. He states that recently he was attempting to move a washer and dryer and noticed pain and a bulge at the umbilicus. He states that he was able to pop this back in but has had persistent discomfort in this area since. He brought this to the attention of his PCP and he was referred to general surgery for evaluation and treatment of this hernia. ROS General General: No weight change, appetite, fatigue, colon cancer, breast cancer or weakness HEENT HEENT: No difficulty swallowing, eye injury, eye surgery, swollen glands or hoarseness Endo Endocrine: No thyroid disease, diabetes mellitus, thyroid cancer, Hair loss, heat intolerance or cold intolerance Skin Skin: No rash or changing moles Musc Musculoskeletal: No back problems, arthritis, rheumatoid arthritis, gout or joint pain Cardio Cardiovascular: No murmur, pacemaker, heart disease, atrial fibrillation, high blood pressure, heart attack, heart stent, palpitations, shortness of breath with exertion or chest pain Psych Psychiatric: Yes anxiety; No depression or hearing voices Resp Respiratory: No shortness of breath, No sleep apnea, No cough, No COPD, No asthma, No emphysema and No wheezing Gastro Gastrointestinal: No abdominal pain, No nausea or vomiting, No diarrhea, No constipation, No blood in stool, No acid reflux, No hemorrhoids, No ulcers, No gallbladder problem and No black,tarry stools [facility] Hematologic: No blood thinners, No blood disorders, No bleeding, No anemia and No blood clots Neuro Neurologic: No system reviewed and no additional complaints, except as documented, No as per HPI, No abnormal gait, No abnormal hearing, No abnormal movements, No abnormal speech, No behavioral changes, No burning sensations, No confusion, No convulsions, No disequilibrium, No dizziness, No localized weakness, No frequent falls, No headache(s), No lack of member services coordinator (more content not included)... Normal [facility] Internal Medicine Office Vis ann-marie 12-01-2024 Internal Medicine Office Visit [facility] [address] [place] [address] [place] [address] OFFICE VISIT Date of Service: 12/01/24 MR#: [id number] Acct: [id number] Name: ANDIE CARUSO Rep #: [id number] : 1990 Provider: Dr. Genevieve lorenz MD Age/Sex: 33/M Location: [facility] Status: Signed Intake Vital Signs 02/04/24 20:37 12/01/24 10:52 Height 5 ft 10 in 5 ft 10 in Weight: 179 lb 6 oz BMI 25.7 BP 112/62 Blood Pressure Location Rt brachial Position Sitting Respiration 16 Pulse 45 L Pulse Source Monitor Temp 96.4 F L Temp Source Temporal Pulse Oximetry (%) 98 Oxygen Delivery Method room air Intake Visit Reasons: Possible hernia? Chief Complaint: hernia check Guidance Consultant Required: No Accompanied by: Self Is patient in pain?: Yes (without movement stretching pain at a 7) Pain scale (1-10): 2 Allergies Seasonal Allergies: Uncoded Allergy (Mild, Verified 12/01/24 10:48) unkown amoxicillin (From Augmentin) Allergy (Unknown, Verified 12/01/24 10:48) PT UNSURE OF REACTION clavulanic acid (From Augmentin) Allergy (Unknown, Verified 12/01/24 10:48) PT UNSURE OF REACTION Medications ???Medication ???Instructions ???Recorded ???Confirmed ???Type Allergy shots OTHER 07/26/23 12/01/24 History Nurse's Note: umbilical hernia possibly, stretching makes it worse pt able to reduce it but pops back out pretty quickly PFSH Surgical History H/O wisdom tooth extraction S/P vasectomy (06/14/22) History of surgery on arm (05/17/21) History of tonsillectomy (04/16/99) History of colonoscopy (04/16/15) Family History Mother Age: 55 Depression Hypertension Father Age: 63 Alcoholism Depression Hypertension Brother Age: 40 Alcoholism Depression Hypertension Brother Age: 31 Kidney disease Alcoholism Depression Hypertension Grandmother Age: 83 Anxiety CVA (cerebral vascular accident) Grandfather Depression Suicide attempt CVA (cerebral vascular accident) Grandmother Diabetes Alcoholism Depression Heart disease Mental disorder Suicide attempt Hypertension Social History (Updated 12/01/24 @ 11:[address] 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 1. Little interest or pleasure in doing things: not at all 2. Feeling down, depressed, or hopeless: not at all 3. Trouble falling or staying asleep, or sleeping too much: not at all 4. Feeling tired or having little energy: not at all 5. Poor appetite or overeating: not at all 6. Feeling bad about yourself - or that you are a failure or have let yourself and your family down: not at all 7. Trouble concentrating on things, such as reading the newspaper or watching television: not at all 8. Moving or speaking so slowly that other people could have noticed? - Or the opposite - being so fidgety or restless that you have been moving around a lot more than usual: not at all 9. Thoughts that you would be better off or of hurting yourself in some way: not at all Total score: 0 If you checked off any problems, how difficult have these problems made it for you to do your work, take care of things at home, or get along with other people?: not difficult at all Source: Developed by Drs. Rusty Torres, Sara Anaya, Aly Phillips and colleagues, with an educational martha from [employer]. NING-7 BMS NING-7 Feeling nervous, anxious, or on edge: 0 = Not at all Not being able to stop or control worryin = Not at all Worrying too much about different things: 0 = Not at all Trouble relaxin = Not at all Being so restless that it is hard to sit still: 0 = Not at all Becoming easily annoyed or irritable: 0 = Not at all Feeling afraid as if something awful might happen: 0 = Not at all Total NING-7 score (0-4 normal; 5-9 mild; 10-14 moderate; 15-21 severe): 0 Source: Developed by Drs. Rusty Torres, Sara Anaya, Aly Phillips and colleagues, with an educational martha from [employer]. HPI HPI Chief Complaint: hernia check Details: ANDIE CARUSO, is a (more content not included)... Normal [facility] Emergency Department Summary on 02-05-2024 Emergency Department Summary [facility] Medical Records Department [address] [place] [id number] Emergency Department Summary 02/05/24 MR#: [id number] Acct: [id number] Name: ANDIE CARUSO Rep #: [id number] : 1990 33 From: Benji Palacios DO PCP: Dr. Genevieve Hercules MD Status:DEP ER Location: ED HPI History of Present Illness Chief Complaint: Nausea/Vomiting Informant: patient and spouse/S.O. 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 He reports that over the past 3 to 5 days he has had mild congestion and cough as well as bouts of nausea and vomiting and low-grade fever. He reports multiple children at school have been sick. He reports he has been taking Tylenol and Motrin for fever control but has been having recurrent bouts of vomiting and as his symptoms are not resolving presents for evaluation. PFSH PFS no medical history Home Medications ???Medication ???Instructions ???Recorded ???Last Taken ???Type Allergy shots OTHER 07/26/23 Unknown History azithromycin 250 mg tablet See Rx Instructions PO .COMPLEX #6 02/05/24 Unknown Rx (Zithromax Z-Ravi) tabs ondansetron 4 mg disintegrating 4 mg PO TID PRN nausea and 02/05/24 Unknown Rx tablet vomiting #21 tabs Allergy/AdvReac Type Severity Reaction Status Date / Time Seasonal Allergies: Uncoded Allergy Mild unkown Verified 02/04/24 20:39 amoxicillin (From Augmentin) Allergy Unknown PT UNSURE Verified 02/04/24 20:39 OF REACTION clavulanic acid (From Allergy Unknown PT UNSURE Verified 02/04/24 20:39 Augmentin) OF REACTION Family History Mother Age: 54 Depression Hypertension Father Age: 61 Alcoholism Depression Hypertension Brother Age: 39 Alcoholism Depression Hypertension Brother Age: 30 Kidney disease Alcoholism Depression Hypertension Grandmother Age: 82 Anxiety CVA (cerebral vascular accident) Grandfather Depression Suicide attempt CVA (cerebral vascular accident) Grandmother Diabetes Alcoholism Depression Heart disease Mental disorder Suicide attempt Hypertension Surgical History H/O wisdom tooth extraction S/P vasectomy (06/14/22) History of surgery on arm (05/17/21) History of tonsillectomy (04/16/99) History of colonoscopy (04/16/15) Social History (Updated 07/26/23 @ 13:[address] 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 [employer] current occupational exposures/hazards: No pets and animals: No history of recent travel: No sexually active: Yes Smoking Status: Never smoker Electronic Cigarette Use: not used how long ago did patient quit smoking: second hand exposure alcohol intake: former details: never heavy drinker substance use type: does not use caffeine: No perla/religious: AGNOSTIC seatbelt use: always do you feel safe at home: Yes ROS ROS ED Constitutional Constitutional ED: Reports chills and fever(s) Eyes Eyes: Denies change in vision ENT ENT ED: Reports rhinorrhea and sore throat Cardiovascular Cardiovascular: Denies chest pain Respiratory/Chest Respiratory/Chest: Reports cough; Denies dyspnea Gastrointestinal Gastrointestinal: Reports abdominal pain, diarrhea, nausea and vomiting Genitourinary Genitourinary ED: Denies dysuria Musculoskeletal Musculoskeletal: Reports myalgias Integumentary Denies rash Neurologic Neurologic: Reports headache(s) Hematologic/Lymphati c Hematologic/Lymphati c: Denies easy bleeding or easy bruising Allergic/Immunologic Allergic/Immunologic ED: Denies mouth swelling or tongue swelling EXAM Physical Exam Const Vital Signs: 02/04/24 20:37 02/04/24 22:36 02/04/24 22:52 Temperature 100.2 F H 100.7 F H Temperature Source Oral Oral Pulse Rate 90 78 Respiratory Rate 16 18 Respiratory Effort Normal Respiratory Depth Normal Respiratory Pattern Normal Blood Pressure 160/76 H 112/74 Blood Pressure Mean 104 86 Pulse Ox 95 92 Oxygen Delivery Method Room Air Room Air Room Air 02/05/24 00:00 Temperature 99.2 F H Temperature Source Oral Pulse Rate 77 Respiratory Rate 18 Respiratory Effort Respiratory Depth Respiratory Pattern Blood Pressure 122/68 H Blood Pressure Mean 86 Pulse Ox 93 Oxygen Delivery Method Room Air Positive well nourished and well developed General Appearance ED: well developed; Negative for pallor HEENT Reports dry mucous membranes HEENT Narrative: Mucous membranes are dry and tacky No tongue or lip swelling no oral lesions n (more content not included)... Normal [facility] CBC W/Diff, Automatedon 10-2 Absolute Lymph 0.87 X10 3/uL Normal 0.83-4.51 [facility] Comment on above: Performed By: #### L 500.4050, L501.4020, L100.0100 #### [facility] [address] [place], [address] Absolute Neut 3.5 X10 3/uL Normal 2.0-7.7 [facility] Comment on above: Performed By: #### L 500.4050, L501.4020, L100.0100 #### [facility] [address] [place], [address] Basophils/100 WBC (Bld) 0.4 % Normal 0-1 [facility] Comment on above: Performed By: #### L 500.4050, L501.4020, L100.0100 #### [facility] [address] [place], [address] Eosinophils/100 WBC (Bld) 0.0 % Normal 0-5 [facility] Comment on above: Performed By: #### L 500.4050, L501.4020, L100.0100 #### [facility] [address] [place], [address] Erythrocyte distribution width (RBC) [Ratio] 13.0 % Normal 11.6-14.6 [facility] Comment on above: Performed By: #### L 500.4050, L501.4020, L100.0100 #### [facility] [address] [place], [address] Hematocrit (Bld) [Volume fraction] 42.3 % Normal 40-54 [facility] Comment on above: Performed By: #### L 500.4050, L501.4020, L100.0100 #### [facility] [address] [place], [address] Hemoglobin (Bld) [Mass/Vol] 14.8 g/dL Normal 13.0-16.5 [facility] Comment on above: Performed By: #### L 500.4050, L501.4020, L100.0100 #### [facility] [address] [place], [address] IG% 0.200 Normal 0.0-0.9 [facility] Comment on above: Result Comment: IG% - Immature Granulocytes (promyelocytes, myelocytes and metamyelocytes) > 1% indicates that a LEFT SHIFT is Present. Performed By: #### L 500.4050, L501.4020, L100.0100 #### [facility] [address] [place], [address] Lymphocytes/100 WBC (Bld) 17.5 % Low 19-41 [facility] Comment on above: Performed By: #### L 500.4050, L501.4020, L100.0100 #### [facility] [address] [place], [address] MCH (RBC) [Entitic mass] 29.1 pg Normal 27.0-32.0 [facility] Comment on above: Performed By: #### L 500.4050, L501.4020, L100.0100 #### [facility] [address] [place], [address] MCHC (RBC) [Mass/Vol] 35.0 g/dL Normal 32-36 [facility] Comment on above: Performed By: #### L 500.4050, L501.4020, L100.0100 #### [facility] [address] [place], [address] MCV (RBC) [Entitic vol] 83.3 fL Normal 80-94 [facility] Comment on above: Performed By: #### L 500.4050, L501.4020, L100.0100 #### [facility] [address] [place], [address] Monocytes/100 WBC (Bld) 11.2 % High 0-10 [facility] Comment on above: Performed By: #### L 500.4050, L501.4020, L100.0100 #### [facility] [address] [place], [address] Neutrophils/100 WBC (Bld) 70.7 % High 47-70 [facility] Comment on above: Performed By: #### L 500.4050, L501.4020, L100.0100 #### [facility] [address] [place], [address] Nucleated RBC (Bld) [#/Vol] 0 10*3/uL Normal 0-5 [facility] Comment on above: Performed By: #### L 500.4050, L501.4020, L100.0100 #### [facility] [address] [place], [address] Platelet mean volume (Bld) [Entitic vol] 11.1 fL Normal 6.2-12.0 [facility] Comment on above: Performed By: #### L 500.4050, L501.4020, L100.0100 #### [facility] [address] [place], [address] Platelets (Bld) [#/Vol] 113 10*3/uL Low 150-450 [facility] Comment on above: Performed By: #### L 500.4050, L501.4020, L100.0100 #### [facility] [address] [place], [address] RBC (Bld) [#/Vol] 5.08 10*6/uL Normal 4.6-6.2 [facility] Comment on above: Performed By: #### L 500.4050, L501.4020, L100.0100 #### [facility] [address] [place], [address] RDW SD 39.6 fl Normal 35.1-43.9 [facility] Comment on above: Performed By: #### L 500.4050, L501.4020, L100.0100 #### [facility] [address] [place], [address] WBC (Bld) [#/Vol] 5.0 10*3/uL Normal 4.4-11.0 [facility] Comment on above: Performed By: #### L 500.4050, L501.4020, L100.0100 #### [facility] [address] [place], [address] Chest 1 View (Portable)on Chest 1 View (Portable) [facility] Imaging Services [address] [place] [address] Chest 1 View (Portable) MR#: [id number] Acct: [id number] Name: ANDIE CARUSO Rep #: [id number] : 1990 M 33 From: Hugo patel MD PCP: Dr. Genevieve Hercules MD Status: PRE ER Study: Chest 1 View (Portable) Date of Exam: 02/04/24 Exam# [id number] Ordering Dr: Benji Palacios DO [id number] STUDY: X-RAY CHEST REASON FOR EXAM: Male, 33 years old. chest pain TECHNIQUE: Single AP portable view of the chest. COMPARISON: 09/21/2010. FINDINGS: Normal lung volumes. Density in the right lung base seen consistent with pneumonia. Left lung is clear. Normal size heart. Normal mediastinum and diandra. Normal visualized pulmonary arteries. Normal visualized aortic arch and descending thoracic aorta. Normal visualized thoracic spine. Normal visualized ribs, clavicles, and shoulders. There is no demonstrated abnormality of the visualized soft tissue structures of the upper abdomen. RAD/Chest 1 View (Portable) IMPRESSION: Density in the right lung base seen consistent with pneumonia. Electronically Signed: Hugo Blakely MD at 22:47 EDT , CC: Dr. Genevieve Hercules MD; Benji Palacios DO Dispensary Technician: Signed Normal [facility] Comprehensive Metabolic Prof ilon 02-04-2024 Albumin [Mass/Vol] 3.4 g/dL Normal 3.2-5.0 [facility] Comment on above: Order Comment: 'TROP ' Serial specimen #1, #2 or #3: 1 Performed By: #### L 500.4050, L501.4020, L100.0100 #### [facility] [address] [place], [address] Albumin/Globulin [Mass ratio] 0.8 {ratio} Low 0.9-2.4 [facility] Comment on above: Order Comment: 'TROP ' Serial specimen #1, #2 or #3: 1 Performed By: #### L 500.4050, L501.4020, L100.0100 #### [facility] [address] [place], [address] ALK P 54 U/L Normal 45-117 [facility] Comment on above: Order Comment: 'TROP ' Serial specimen #1, #2 or #3: 1 Performed By: #### L 500.4050, L501.4020, L100.0100 #### [facility] [address] [place], [address] ALT [Catalytic activity/Vol] 26 U/L Normal 16-61 [facility] Comment on above: Order Comment: 'TROP ' Serial specimen #1, #2 or #3: 1 Performed By: #### L 500.4050, L501.4020, L100.0100 #### [facility] [address] [place], [address] AST [Catalytic activity/Vol] 41 U/L High 15-37 [facility] Comment on above: Order Comment: 'TROP ' Serial specimen #1, #2 or #3: 1 Performed By: #### L 500.4050, L501.4020, L100.0100 #### [facility] [address] [place], [address] Bilirubin [Mass/Vol] 0.40 mg/dL Normal 0.20-1.00 [facility] Comment on above: Order Comment: 'TROP ' Serial specimen #1, #2 or #3: 1 Result Comment: For patients on eltrombopag therapy, use of Dimension Runnells TBIL is not recommended. Performed By: #### L 500.4050, L501.4020, L100.0100 #### [facility] [address] [place], [address] BUN/CRE 12.3 RATIO Normal 10-20 [facility] Comment on above: Order Comment: 'TROP ' Serial specimen #1, #2 or #3: 1 Performed By: #### L 500.4050, L501.4020, L100.0100 #### [facility] [address] [place], [address] CA,Total 8.8 mg/dL Normal 8.5-10.1 [facility] Comment on above: Order Comment: 'TROP ' Serial specimen #1, #2 or #3: 1 Performed By: #### L 500.4050, L501.4020, L100.0100 #### [facility] [address] [place], [address] Chloride [Moles/Vol] 96 mmol/L Low 98-107 [facility] Comment on above: Order Comment: 'TROP ' Serial specimen #1, #2 or #3: 1 Performed By: #### L 500.4050, L501.4020, L100.0100 #### [facility] [address] [place], [address] CO2 [Moles/Vol] 27.0 mmol/L Normal 21.0-32.0 [facility] Comment on above: Order Comment: 'TROP ' Serial specimen #1, #2 or #3: 1 Performed By: #### L 500.4050, L501.4020, L100.0100 #### [facility] [address] [place], [address] Creatinine [Mass/Vol] 1.14 mg/dL Normal 0.70-1.30 [facility] Comment on above: Order Comment: 'TROP ' Serial specimen #1, #2 or #3: 1 Result Comment: The validity of the calculated GFR GFRAA in patients over 70 years has not been determined. Clinical correlation is essential. Performed By: #### L 500.4050, L501.4020, L100.0100 #### [facility] [address] [place], [address] ECRCL 96.05 ml/min Normal [facility] Comment on above: Order Comment: 'TROP ' Serial specimen #1, #2 or #3: 1 Performed By: #### L 500.4050, L501.4020, L100.0100 #### [facility] [address] [place], [address] EST GFR - AA 96 mL/min Normal >60 [facility] Comment on above: Order Comment: 'TROP ' Serial specimen #1, #2 or #3: 1 Result Comment: Afri can Nigerian GFR Calc Performed By: #### L 500.4050, L501.4020, L100.0100 #### [facility] [address] [place], [address] GAP 9 Normal 5-15 [facility] Comment on above: Order Comment: 'TROP ' Serial specimen #1, #2 or #3: 1 Performed By: #### L 500.4050, L501.4020, L100.0100 #### [facility] [address] [place], [address] GFR/1.73 sq M.predicted among non-blacks MDRD (S/P/Bld) [Vol rate/Area] 79 mL/min/{1.73_m2} Normal >60 [facility] Comment on above: Order Comment: 'TROP ' Serial specimen #1, #2 or #3: 1 Result Comment: Non- GFR Calc Performed By: #### L 500.4050, L501.4020, L100.0100 #### [facility] [address] [place], [address] Globulin (S) [Mass/Vol] 4.1 g/dL Normal 2.2-4.2 [facility] Comment on above: Order Comment: 'TROP ' Serial specimen #1, #2 or #3: 1 Performed By: #### L 500.4050, L501.4020, L100.0100 #### [facility] [address] [place], [address] Glucose [Mass/Vol] 115 mg/dL High 74-106 [facility] Comment on above: Order Comment: 'TROP ' Serial specimen #1, #2 or #3: 1 Result Comment: Fast ing Glucose result from 100 to 125 mg/dL suggests IMPAIRED HOMEOSTASIS per A.D.A. criteria. Performed By: #### L 500.4050, L501.4020, L100.0100 #### [facility] [address] [place], [address] Potassium [Moles/Vol] 3.5 mmol/L Normal 3.5-5.1 [facility] Comment on above: Order Comment: 'TROP ' Serial specimen #1, #2 or #3: 1 Performed By: #### L 500.4050, L501.4020, L100.0100 #### [facility] [address] [place], [address] Sodium [Moles/Vol] 132 mmol/L Low 136-145 [facility] Comment on above: Order Comment: 'TROP ' Serial specimen #1, #2 or #3: 1 Performed By: #### L 500.4050, L501.4020, L100.0100 #### [facility] [address] [place], [address] T PROT 7.5 g/dL Normal 6.4-8.2 [facility] Comment on above: Order Comment: 'TROP ' Serial specimen #1, #2 or #3: 1 Performed By: #### L 500.4050, L501.4020, L100.0100 #### [facility] [address] [place], [address] Urea nitrogen [Mass/Vol] 14 mg/dL Normal 7-18 [facility] Comment on above: Order Comment: 'TROP ' Serial specimen #1, #2 or #3: 1 Performed By: #### L 500.4050, L501.4020, L100.0100 #### [facility] [address] [place], [address] L501.4020on 02-04-2024 TROPONIN-I HS 14 pg/mL Normal 3.0-78.0 [facility] Comment on above: Order Comment: 'TROP ' Serial specimen #1, #2 or #3: 1 Result Comment: Niraj delgado Note: New Test Units and Gender Specific Reference Ranges. For more information see Policy Stat Procedure Runnells High Sensitivity Troponin (TNIH) and attachments. Performed By: #### L 500.4050, L501.4020, L100.0100 #### [facility] [address] [place], [address] M100.678on 02-04-2024 M100.678 Copy of report sent to Infection Control Printer [id number] 02/05/2443 ALISE. FLUABV+SARS-CoV-2+RS V Pnl Resp KARAN+probe SARS-CoV-2 (COVID 19) A Positive A INFLUENZA A Negative INFLUENZA B Negative RSV PCR Negative SARS-CoV-2 (COVID 19 PCR) * This is an amended result. * A prior result that was reported as final has been changed. 02/05/2443 by ALISE Trujillo [facility] Comment on above: Performed By: #### M 100.678 #### [facility] [address] [place], [address] Urinalysis, Completeon 02-03 BACTERIA 1+ /hpf Normal None Seen [facility] Comment on above: Order Comment: COLLE CTOR TO SPECIFY Performed By: #### L 400.0001 #### [facility] [address] [place], [address] CA OX CRYSTAL RARE Normal [facility] Comment on above: Order Comment: COLLE CTOR TO SPECIFY Performed By: #### L 400.0001 #### [facility] [address] [place], [address] RBC 0-5 SEEN Normal 0-5 [facility] Comment on above: Order Comment: COLLE CTOR TO SPECIFY Performed By: #### L 400.0001 #### [facility] [address] [place], [address] WBC 0-5 SEEN Normal 0-5 [facility] Comment on above: Order Comment: COLLE CTOR TO SPECIFY Performed By: #### L 400.0001 #### [facility] [address] [place], [address] Mucus Ql (Urine sed) 1+ /hpf Normal [facility] Comment on above: Order Comment: COLLE CTOR TO SPECIFY Performed By: #### L 400.0001 #### [facility] [address] [place], [address] EPI,SQUAMOUS 0 SEEN Normal 0-5 [facility] Comment on above: Order Comment: COLLE CTOR TO SPECIFY Performed By: #### L 400.0001 #### [facility] [address] [place], [address] Vital Signs Date Time Vital Sign Value Performing Clinician Facility 12-17-2024 15:46-0400 Body temperature 96.9 [degF] Dr. Genevieve Hercules MD Work Phone: [facility] 12-17-2024 15:46-0400 Diastolic blood pressure 76 mm[Hg] Dr. Genevieve Hercules MD Work Phone: [facility] 12-17-2024 15:46-0400 Heart rate 60 /min Dr. Genevieve Hercules MD Work Phone: [facility] 12-17-2024 15:46-0400 Respiratory rate 18 /min Dr. Genevieve Hercules MD Work Phone: [facility] 12-17-2024 15:46-0400 SaO2% (BldA) [Mass fraction] 99 % Dr. Genevieve Hercules MD Work Phone: [facility] 12-17-2024 15:46-0400 Systolic blood pressure 148 mm[Hg] Dr. Genevieve Hercules MD Work Phone: [facility] 12-17-2024 14:45-0400 Inhaled oxygen flow rate 4 L/min Dr. Genevieve Hercules MD Work Phone: [facility] 12-17-2024 12:46-0400 Body height [address] Genevieve Hercules MD Work Phone: [facility] 12-17-2024 12:46-0400 Body mass index (BMI) [Ratio] 25.2 kg/m2 Dr. Genevieve Hercules MD Work Phone: [facility] 12-17-2024 12:46-0400 Body weight [address] Genevieve Hercules MD Work Phone: [facility] 12-05-2024 13:09-0400 Body height 177.[address] Genevieve Hercules MD Work Phone: [facility] 12-05-2024 13:09-0400 Body mass index (BMI) [Ratio] 25.7 kg/m2 Dr. Genevieve Hercules MD Work Phone: [facility] 12-05-2024 13:09-0400 Body weight 81.[address] Genevieve Hercules MD Work Phone: [facility] 12-05-2024 13:09-0400 Diastolic blood pressure 78 mm[Hg] Dr. Genevieve Hercules MD Work Phone: [facility] 12-05-2024 13:09-0400 Heart rate 65 /min Dr. Genevieve Hercules MD Work Phone: [facility] 12-05-2024 13:09-0400 Respiratory rate 17 /min Dr. Genevieve Hercules MD Work Phone: [facility] 12-05-2024 13:09-0400 SaO2% (BldA) [Mass fraction] 99 % Dr. Genevieve Hercules MD Work Phone: [facility] 12-05-2024 13:09-0400 Systolic blood pressure 154 mm[Hg] Dr. Genevieve Hercules MD Work Phone: [facility] 12-01-2024 10:52-0400 Body height 177.[address] Genevieve Hercules MD Work Phone: [facility] 12-01-2024 10:52-0400 Body mass index (BMI) [Ratio] 25.7 kg/m2 Dr. Genevieve Hercules MD Work Phone: [facility] 12-01-2024 10:52-0400 Body temperature 96.4 [degF] Dr. Genevieve Hercules MD Work Phone: [facility] 12-01-2024 10:52-0400 Body weight 81.[address] Genevieve Hercules MD Work Phone: [facility] 12-01-2024 10:52-0400 Diastolic blood pressure 62 mm[Hg] Dr. Genevieve Hercules MD Work Phone: [facility] 12-01-2024 10:52-0400 Heart rate 45 /min Dr. Genevieve Hercules MD Work Phone: [facility] 12-01-2024 10:52-0400 Respiratory rate 16 /min Dr. Genevieve Hercules MD Work Phone: [facility] 12-01-2024 10:52-0400 SaO2% (BldA) [Mass fraction] 98 % Dr. Genevieve Hercules MD Work Phone: [facility] 12-01-2024 10:52-0400 Systolic blood pressure 112 mm[Hg] Dr. Genevieve Hercules MD Work Phone: [facility] 05-31-2021 14:50-0500 Diastolic Blood Pressure NBP [address] AG KWAN MD [facility] 05-31-2021 14:50-0500 Heart rate 66 /min DR AG KWAN MD [facility] 05-31-2021 14:50-0500 Respiratory rate 16 /min DR AG KWAN MD [facility] 05-31-2021 14:50-0500 Systolic Blood Pressure NBP [address] AG KWAN MD [facility] 05-31-2021 14:33-0500 Diastolic Blood Pressure NBP [address] AG KWAN MD [facility] 05-31-2021 14:33-0500 Heart rate 68 /min DR AG KWAN MD [facility] 05-31-2021 14:33-0500 Respiratory rate 13 /min DR AG KWAN MD [facility] 05-31-2021 14:33-0500 Systolic Blood Pressure NBP [address] AG KWAN MD [facility] 05-31-2021 14:20-0500 Diastolic Blood Pressure NBP [address] AG KWAN MD [facility] 05-31-2021 14:20-0500 Heart rate 55 /min DR AG KWAN MD [facility] 05-31-2021 14:20-0500 Respiratory rate 10 /min DR AG KWAN MD [facility] 05-31-2021 14:20-0500 Systolic Blood Pressure NBP [address] AG KWAN MD [facility] 05-31-2021 13:37-0500 Body temperature 32 [degF] DR GA KWAN MD [facility] 05-31-2021 11:51-0500 Body height 180.[address] AG KWAN MD [facility] 05-31-2021 11:51-0500 Body temperature 98.78 [degF] DR AG KWAN MD [facility] 05-31-2021 11:51-0500 Body weight [address] AG KWAN MD [facility] 05-31-2021 11:51-0500 Diastolic blood pressure 77 mm[Hg] DR AG KWAN MD [facility] 05-31-2021 11:51-0500 Heart rate 62 /min DR AG KWAN MD [facility] 05-31-2021 11:51-0500 Systolic blood pressure 133 mm[Hg] DR AG KWAN MD [facility] 05-17-2021 12:47-0500 Body height 180.[address] AG KWAN MD [facility] 05-17-2021 12:47-0500 Body weight [address] AG KWAN MD [facility] 05-17-2021 12:47-0500 Body weight 23.07 kg/m2 DR AG KWAN MD [facility] 05-17-2021 12:47-0500 diastolic 76 mm[Hg] DR AG KWAN MD [facility] 05-17-2021 12:47-0500 Heart rate 56 /min DR AG KWAN MD [facility] 05-17-2021 12:47-0500 Respiratory rate 20 /min DR AG KWAN MD [facility] 05-17-2021 12:47-0500 systolic 122 mm[Hg] DR AG KWAN MD [facility] Encounters Encounter Date Encounter Type Care Provider Facility Start: 12-17-2024 ambulatory Genevieve Hercules Facility :[facility] Start: 12-17-2024 Non-patient / Non-visit Dr. Chika OLIVEIRA [facility] Start: 12-17-2024 End: 12-17-2024 Admission to same day surgery center Dr. Ag Altamirano [facility] Start: 12-17-2024 End: 12-17-[address] Genevieve Hercules MD Work Phone: [facility] Start: 12-05-2024 End: 12-05-[address] Ag Altamirano MD [facility] Work Phone: Start: 12-05-2024 End: 12-05-[address] Genevieve Hercules MD Work Phone: [facility] Start: 12-01-2024 End: 12-01-[address] Genevieve Hercules MD Work Phone: [facility] Start: 12-01-2024 End: 12-01-[address] Genevieve Hercules MD [facility] Work Phone: Start: 02-04-2024 End: 02-05-2024 Emergency department patient visit Benjileon Palacios Facility:[facility] Start: 05-31-2021 End: 05-31-[address] AG KWAN MD [facility] Start: 05-17-2021 End: 05-17-[address] AG KWAN MD [facility] Procedures Date Procedure Procedure Detail Performing Clinician Start: 12-17-2024 Repair of umbilical hernia Dr. Genevieve Hercules MD Work Phone: Extraction of wisdom tooth D R AG KWAN MD Tonsillectomy DR AG MOTA MD Plan of Treatment Date Care Activity Detail Author Start: 12-17-2024 Patient discharge [facility] CBC W Auto Different ial panel - Blood [facility] Comprehensive metabo lic 1999 panel - Serum or Plasma [facility] Lipid 1996 panel - S xavi or Plasma [facility] Immunizations Immunization Date Immunization Notes Care Provider Fa cility 09-03-2023 Pfizer Covid-19 (Comirnaty) Dr. Genevieve Hercules MD Work Phone: [facility] 04-25-2021 Covid (Pfizer) Dr. Genevieve roque MD Work Phone: [facility] 08-19-2020 Covid (Moderna) Dr. eGnevieve moy MD Work Phone: [facility] 07-22-2020 Covid (Moderna) Dr. Genevieve moy MD Work Phone: [facility] Payers Date Payer Category Payer Self-pay 2024 Unknown [id number] Unknown [id number] Unknown [id number] [id number] [id number] Unknown [id number] 2.16.8 [id number] Unknown [id number] 2.16.8 [id number] Unknown [id number] 2.16.8 [id number] Social History Date Type Detail Facility Start: 05-17-2021 End: 2024 Never smoked tobacco (finding) [facility] Start: 1990 Sex Assigned At Male A [facility] Goals Date Patient Goal Desired Activity /State Functional Status Date Assessment Result Facility 12-17-2024 Functional status Ambulates [facility] Work Phone: Mental Status Date Assessment Result Facility 12-17-2024 Cognitive function Level Of Consciousness Drowsy [facility] Work Phone: 12-17-2024 Cognitive function Voice/Name [facility] Work Phone: Clinical Notes 12-01-2024 to 12-17-2024 Note Date & Type Note Facility 12-17-2024 Consult note [facility] 12-17-2024 History and physical note Note Date/Time December 17, 2024 1:34pm [facility] Medical Records Department [address] [place] [address] History & Physical Exam 12/17/24 1333 MR#: [id number] Acct: [id number] Name: ANDIE CARUSO Rep #:[id number] : 1990 34 From: Ag Altamirano MD PCP: Dr. Genevieve Hercules MD Status:REG [facility] Location: [place] [address] HPI - General General Date of Admission: 12/17/24 Date of Service: 12/17/24 Chief Complaint: Umbilical hernia HPI Narrative ANDIE CARUSO, is a 34 M who presents for repair of a small umbilical hernia [facility] Medical History (Updated 12/08/24 @ 13:16 by Suzy Barroso) Wears glasses Non-smoker Anxiety Home Medications ?Medication ?Instructions ?Recorded ?Last Taken ?Type CREATINE 5 mg PO DAILY 12/08/24 Unkno wn History Whey PROTEIN 1 tbsp PO DAILY 12/08/24 Unk nown History Allergy/AdvReac Type Severity Reaction Status Date / Time Seasonal Allergies: Uncoded Allergy Mild unkown Verified 12/08/24 13:09 amoxicillin (From Augmentin) Allergy Unknown PT UNSURE Verified 12/08/24 13:09 OF REACTION clavulanic acid (From Allergy Unknown PT UNSURE Verified 12/08/24 13:09 Augmentin) OF REACTION Family History Mother Age: 55 Depression Hypertension Father Age: 63 Alcoholism Depression Hypertension Brother Age: 40 Alcoholism Depression Hypertension Brother Age: 31 Kidney disease Alcoholism Depression Hypertension Grandmother Age: 83 Anxiety CVA (cerebral vascular accident) Grandfather Depression Suicide attempt CVA (cerebral vascular accident) Grandmother Diabetes Alcoholism Depression Heart disease Mental disorder Suicide attempt Hypertension Surgical History (Updated 12/08/24 @ 13:16 by Suzy Barroso) H/O wisdom tooth extraction S/P vasectomy (06/14/22) History of surgery on arm (05/17/21) History of tonsillectomy (04/16/99) History of colonoscopy (04/16/15) Social History (Updated 12/05/24 @ 13:09 by Racquel March) adopted: No household members: family housing: house current occupational status: employed current occupational exposures/hazards: No pets and animals: No history of recent travel: No sexually active: Yes Smoking Status: Never smoker Electronic Cigarette Use: not used how long ago did patient quit smoking: second hand exposure alcohol intake: former details: never heavy drinker substance use type: does not use caffeine: No perla/religious: AGNOSTIC seatbelt use: always do you feel safe at home: Yes Vital Signs Vital Signs Vital Signs: 12/17/24 12:46 12/17/24 12:46 12/17/24 13:14 Temperature 97.6 F L 97.6 F L Temperature Source Temporal Pulse Rate 65 65 Respiratory Rate 16 16 Respiratory Pattern Normal Blood Pressure 113/81 H 113/81 H Blood Pressure Mean 91 Pulse Ox 98 98 Oxygen Delivery Method Room Air Weight Weight: 176 lb 5.917 oz Body Mass Index (BMI) 25.2 Physical Exam Const alert, oriented x3 and no apparent distress Assessment & Plan Assessment/Plan (1) Umbilical hernia: PLAN: Plan Plan for umbilical hernia repair surgery without mesh 12/17/24 1334 <Electronically signed by Ag Altamirano MD> Cosigner Signature (if applicable): CC: Dr. Genevieve Hercules MD; Dr. Ag Altamirano MD~ Signed [facility] Work Phone: 1(745) 499-903309-03-2025 Consult note Author Deo Manuel [facility] Note Date/Time December 17, 2024 1:14pm [facility] Medical Records Department [address] [place], [place] [address] [address] Pre-Anesthesia Evaluation 12/17/24 1313 MR#: [id number] Acct: [id number] Name: ANDIE CARUSO Rep #:[id number] : 1990 34 From: Deo Manuel MD PCP: Dr. Genevieve Hercules MD Status:REG SDC Y Race: C Location: [place] [address] ASA Classification* ASA Classification ASA Classification: 1 Assessment & Plan Anesthesia* Anesthesia Assessment Anesthesia Assessment: Discussed sedation and/or anesthesia options, risks, benefits, and alternatives with patient/parents/legal guardian/POA. Questions invited. The patient/parents/legal guardian/POA seems to understand and agrees to proceedwith anesthesia plan. Reviewed the physical assessment, medical history, allergy history and patient home medications list prior to surgery/procedure/anesthetic and documented any changes. Performed airway and anesthesia risk assessments. Anesthesia Type Anesthesia Type: General History Source History Obtained from:: Patient and Chart Anesthesia Focused Assessment* Temperature: 97.6 F Pulse Rate: 65 Blood Pressure: 113/81 Respiratory Rate: 16 Pulse Ox: 98 Airway Assessment Mouth opens: >3 cm Mallampati Score: II Teeth Condition: Intact Neck Range of motion (ROM): Full ROM Labs Anesthesia Preop lab: CBC WBC 5.0 K/mm3 (4.4-11.0) 02/04/24 20:55 02/04/24 RBC 5.08 M/mm3 (4.6-6.2) 02/04/24 20:55 02/04/24 Hgb 14.8 g/dL (13.0-16.5) 02/04/24 20:55 02/04/24 Hct 42.3 % (40-54) 02/04/24 20:55 02/04/24 Plt Count 113 K/mm3 (150-450) L 02/04/24 20:55 02/04/24 CHEMISTRY Potassium 3.5 mmol/L (3.5-5.1) 02/04/24 20:55 02/04/24 Sodium 132 mmol/L (136-145) L 02/04/24 20:55 02/04/24 BUN 14 mg/dL (7-18) 02/04/24 20:55 02/04/24 Creatinine 1.14 mg/dL (0.70-1.30) 02/04/24 20:55 02/04/24 Glucose 115 mg/dL (74-106) H 02/04/24 20:55 02/04/24 COAG Pre-Assessment Diagnosis/Proposed Procedure Planned Operative Procedure(s): OPEN UMBILICAL HERNIA REPAIR Anesthesia History Anesthesia History - supervisor safety deposit: Anesthesia History - supervisor safety deposit Hx Hospitalization No 12/08/24 13:18 Any Problems With Anesthesia No 12/08/24 13:18 Cholinesterase deficiency No 12/08/24 13:18 You/Your Family Experience No 12/08/24 13:18 fever (hyperthermia) with Relationship Recent Exposure to Contagious No 12/17/24 12:46 Disease Does patient have nerve No 12/08/24 13:18 stimulator Patient instructed to have device shut off --Does patient have Pacemaker No 12/17/24 12:46 or ICD? When Was Last Pacemaker Check QUESTION #4 FULL TEXT: You/Your Family Experience fever (hyperthermia) with Anesthesia Last Oral Intake Last Oral intake: Last Oral Intake NPO since 19:00 12/17/24 12:46 Meds taken in AM with sips of No 12/17/24 12:46 water? Meds patient instructed to take am of surgery PONV PONV - supervisor safety deposit: PONV - supervisor safety deposit Female No 12/08/24 13:18 HX of Motion Sickness Yes 12/08/24 13:18 HX of N/V After Surgery No 12/08/24 13:18 Non-Smoker Yes 12/08/24 13:18 Duration of Surgery greater No 12/08/24 13:18 than 60 minutes Number of Risk Factors 2 12/08/24 13:18 PONV Score Moderate Risk 12/08/24 13:18 Height & Weight Height & Weight: Anesthesia: Height & Weight Height 5 ft 10.08 in 12/17/24 12:46 Weight: 80 kg 12/17/24 12:46 Body Mass Index (BMI) 25.2 12/17/24 12:46 Respiratory Assessment Respiratory Assessment - supervisor safety deposit: Respiratory Tract Infection Hx - supervisor safety deposit Hx Respiratory Tract Infection No 12/08/24 13:18 STOP Sleep Apnea STOP Sleep Apnea - supervisor safety deposit: STOP Sleep Apnea - supervisor safety deposit Hx Hypertension No 12/08/24 13:18 Hx Sleep Apnea No 12/08/24 13:18 CPAP BIPAP Do you snore loudly (louder No 12/08/24 13:18 than talking or can be heard Do you often feel tired/ No 12/08/24 13:18 fatigued/ sleepy during daytime? Has anyone observed you stop No 12/08/24 13:18 breathing during sleep? STOP Results Negative 12/08/24 13:18 QUESTION #5 FULL TEXT : Do you snore loudly (louder than talking or can be heard through closed doors)? 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 Specify any problems Hx of Preganancy in last 3 N/A 12/08/24 13:18 Months Nurse Filling Out Transfusion DSCHRIBER 12/08/24 13:18 & Questions: Date: 12/08/24 12/08/24 13:18 Time: 13:19 12/08/24 13:18 Patient unable to answer at this time (ie. confused, unrespo /Reproduction History /Reproductive History - supervisor safety deposit: /Reproductive Hx- supervisor safety deposit Hx Now No 12/08/24 13:18 Gestational Age (in weeks): EDC: Hx Hx Para Hx Section SAB No 12/08/24 13:18 Active Medications Active Medications: Current Medications Generic Name Dose Route Start Last Admin Trade Name Freq PRN Reason Stop Dose Admin Lactated Ringer's 1,000 mls @ 15 mls/hr 12/17/24 12:45 12/17/24 12:56 IV 15 mls/hr .Q48H BING Administration PFSH Medical History (Updated 12/08/24 @ 13:16 by Suzy Barroso) Wears glasses Non-smoker Anxiety Home Medications ?Medication ?Instructions ?Recorded ?Last Taken ?Type CREATINE 5 mg PO DAILY 12/08/24 Unkno wn History Whey PROTEIN 1 tbsp PO DAILY 12/08/24 Unk nown History Allergy/AdvReac Type Severity Reaction Status Date / Time Seasonal Allergies: Uncoded Allergy Mild unkown Verified 12/08/24 13:09 amoxicillin (From Augmentin) Allergy Unknown PT UNSURE Verified 12/08/24 13:09 OF REACTION clavulanic acid (From Allergy Unknown PT UNSURE Verified 12/08/24 13:09 Augmentin) OF REACTION Family History Mother Age: 55 Depression Hypertension Father Age: 63 Alcoholism Depression Hypertension Brother Age: 40 Alcoholism Depression Hypertension Brother Age: 31 Kidney disease Alcoholism Depression Hypertension Grandmother Age: 83 Anxiety CVA (cerebral vascular accident) Grandfather Depression Suicide attempt CVA (cerebral vascular accident) Grandmother Diabetes Alcoholism Depression Heart disease Mental disorder Suicide attempt Hypertension Surgical History (Updated 12/08/24 @ 13:16 by Suzy Barroso) H/O wisdom tooth extraction S/P vasectomy (06/14/22) History of surgery on arm (05/17/21) History of tonsillectomy (04/16/99) History of colonoscopy (04/16/15) Social History (Updated 12/05/24 @ 13:09 by Racquel March) adopted: No household members: family housing: house current occupational status: employed current occupational exposures/hazards: No pets and animals: No history of recent travel: No sexually active: Yes Smoking Status: Never smoker Electronic Cigarette Use: not used how long ago did patient quit smoking: second hand exposure alcohol intake: former details: never heavy drinker substance use type: does not use caffeine: No perla/religious: AGNOSTIC seatbelt use: always do you feel safe at home: Yes Review of Systems (Anesthesia) ROS Narrative System reviewed and no additional complaints, except as documented. Physical Exam Const alert, oriented x3 and average body habitus Resp normal respiratory effort, normal air movement and clear to auscultation bilaterally Cardio regular rate, regular rhythm and no murmurs 12/17/24 1314 <Electronically signed by Deo Manuel MD> Date _ Deo Fleming Signature: Date CC: ~ Signed [facility] Work Phone: 1(109) 274-647409-03-2025 Procedure note [facility] Medical Records Department [address] [place] [address] Operative Report 12/17/24 1448 MR#: [id number] Acct: [id number] Name: ANDIE CARUSO Rep #:[id number] : 1990 34 From: Ag Altamirano MD PCP: Dr. Genevieve Hercules MD Status:[facility] Location: [place] [address] Problems Associated Problem List Diagnoses (1) Umbilical hernia: Procedures Digestive 40xxx-49xxx: 33816 RPR AA HRN 1ST < 3 CM RDC Operative Report (Standard) Operative Information Date of Procedure: 12/17/24 Pre-Operative Diagnosis: Umbilical hernia Post-Operative Diagnosis: Umbilical hernia Surgery/Procedure Performed: Open primary repair of umbilical hernia deck cadet: Yes Production Wood Craftsman: Dede Mayo Tasks completed by sales assistant: Closing and Retracting Additional dietary assistant?: No Type of Anesthesia: General and Local RN Documented Start/Stop Times: Operation Date: 12/17/24 14:00 Case Time Into Pre-Op 12/17/24 12:40 Out of Pre-Op 12/17/24 13:38 Anesthesia Start 12/17/24 13:41 Into Room 12/17/24 13:41 Procedure Start 12/17/24 13:57 Procedure End 12/17/24 14:30 Anesthesia End 12/17/24 14:37 Out of Room 12/17/24 14:37 Into Recovery 12/17/24 14:40 Procedure Start Time: 13:57 Procedure Stop Time: 14:30 Select all DRAINS/GRAFTS/IMPLANTS that apply: None Estimated Blood Loss: 5 mL Specimen collected: No Description of surgery: The patient is a 34-year-old male recently seen through the office with a small umbilical hernia. Fascial defect size was less than a centimeter. I felt that this was appropriate for an open repair without mesh. We discussed the details of the planned procedure and he wished to proceed. He was brought to the operating room today following informed consent. He was placed supine the operative tablewith arms outstretched and arm boards. The abdomen was then prepped and draped in the usual sterilemanner. A curvilinear incision was madearound the inferior aspect of the umbilicus after injecting local anesthetic. Bovie electrocautery was then used to dissect down through the subcutaneous tissues. The skin of the umbilicus was encircled using finger dissection as well as dissection with a Kylee clamp. The skin of the umbilicus was then detached from the underlying hernia sac. The hernia sac was excised and the fascial defect edges were cleared. The fascial defect was about a centimeter slightly larger. This was certainly less than 2 cm which made primary repair appropriate. This was thenclosed with 0 Nurolon placed in interrupted manner. This closed the fascial defect nicely. 3-0 Vicryl was then used to reapproximate the skin of the umbilicus to the underlying fascia. 3-0 Vicryl was also used to reapproximate the subdermal layer. 4-0 Vicryl was run on the skin. Skin glue was applied as dressing. 2 x 2 along with gauze and OpSite's were applied. Abdominal binder was also placed. He was awakened anesthesia andtaken recovery in good condition. Surgical Findings: 1 cm fascial defect. Fat-containing hernia Complications Complications: No Admit VTE Documentation VTE Present on Admission: No VTE Mechan Device Prophylaxis: SCD's VTE Pharm Prophylaxis ordered?: No Reason prophylaxis not ordered: Treatment Not Indicated 12/17/24 1500 Cosigner Signature (if applicable): CC: Dr. Genevieve Hercules MD; Dr. Ag Altamirano MD~ Signed [facility]09-03-2025 Discharge summary [facility] Medical Records Department [address] [place] [address] Instructions for Home/Discharge Instructions 12/17/24 1444 MR#: [id number] Acct: [id number] Name: ANDIE CARUSO Rep #:[id number] : 1990 34 From: Ag Altamirano MD PCP: Dr. Genevieve Hercules MD Status:REG [facility] Discharge Instructions Diet Discharge Diet: Light diet - advance as tolerated Activity Discharge Activity: Return to Normal Activity and May Shower May shower in (days): 1 Ice area for (Minutes): 30 Lifting Restrictions: No lifting pushing or pulling more than 20 pounds for 6 weeks Dressing / Incision Call your doctor if your incision/area has: Continuous Slow Oozing, Sudden Increased Bleeding, Increased Pain/ Swelling, Increased Redness, Foul Smelling Discharge and Swelling at the incision site Call your doctor if you observe: Fever of 101 or Higher Cleanse incision/area with: Soap & Water Follow Up Care Please Follow Up With: Ag Altamirano MD When: 2 weeks. Please call office to schedule appointment. Test Results: Test results from this visit will be discussed in further detail at your follow- up appointment, if applicable. Discharge Plan Admission Primary Reason for Your Visit: Umbilical hernia repair Attending Provider: Ag Altamirano Primary Care Provider: Genevieve Hercules Instructions Print Language: Finnish Discharge Orders/Prescriptions Prescriptions: Continued CREATINE 5 mg PO DAILY Whey PROTEIN 1 tbsp PO DAILY Referrals / Follow Up: Genevieve Hercules MD [Primary Care Provider] - Disposition Disposition (needs filled in before D/C Order can be placed): Home, Self Care 12/17/24 1447Stlaura Altamirano MD CC: Dr. Genevieve Hercules MD ~ Signed [facility]09-03-2025 Consult note [facility] Medical Records Department [address] [place] [id number] Anesthesia Postop Eval I 12/17/24 1444 MR#: [id number] Acct: [id number] Name: ANDIE CARUSO Rep #:[id number] : 1990 34 From: Donny Rosales CRNA PCP: Dr. Genevieve Hercules MD Status:REG [facility] Y Race: C Location: [place] [address] Anesthesia: Postop Eval I Current Vital Signs Temperature: 97.4 F Pulse Rate: 79 Blood Pressure: 120/60 Respiratory Rate: 16 Pulse Ox: 93 Oxygen Delivery Method: Room Air Assessment Airway patent: Yes Spontaneous unlabored respirations: Yes Mental status: Asleep nausea: No Vomiting: No Anesthesia Complication: No Fluid Hydration Crystalloid volume administer (ml): 900 Total IV fluid infused: 900 Progress Note Anesthesia document: Postop Eval 1 completed: Yes 12/17/24 1445 y [employer]SHMALLOW [employer]NER> Date _ Donny Rosales [employer]NER Cosigner Signature: Date CC: ~ Signed [facility]09-03-2025 History and physical note [facility] Medical Records Department [address] [place] [address] History & Physical Exam 12/17/24 1333 MR#: [id number] Acct: [id number] Name: ANDIE CARUSO Rep #:[id number] : 1990 34 From: Ag Altamirano MD PCP: Dr. Genevieve Hercules MD Status:[facility] Location: [place] [address] HPI - General General Date of Admission: 12/17/24 Date of Service: 12/17/24 Chief Complaint: Umbilical hernia HPI Narrative ANDIE CARUSO, is a 34 M who presents for repair of a small umbilical hernia [facility] Medical History (Updated 12/08/24 @ 13:16 by Suzy Barroso) Wears glasses Non-smoker Anxiety Home Medications ?Medication ?Instructions ?Recorded ?Last Taken ?Type CREATINE 5 mg PO DAILY 12/08/24 Unkno wn History Whey PROTEIN 1 tbsp PO DAILY 12/08/24 Unk nown History Allergy/AdvReac Type Severity Reaction Status Date / Time Seasonal Allergies: Uncoded Allergy Mild unkown Verified 12/08/24 13:09 amoxicillin (From Augmentin) Allergy Unknown PT UNSURE Verified 12/08/24 13:09 OF REACTION clavulanic acid (From Allergy Unknown PT UNSURE Verified 12/08/24 13:09 Augmentin) OF REACTION Family History Mother Age: 55 Depression Hypertension Father Age: 63 Alcoholism Depression Hypertension Brother Age: 40 Alcoholism Depression Hypertension Brother Age: 31 Kidney disease Alcoholism Depression Hypertension Grandmother Age: 83 Anxiety CVA (cerebral vascular accident) Grandfather Depression Suicide attempt CVA (cerebral vascular accident) Grandmother Diabetes Alcoholism Depression Heart disease Mental disorder Suicide attempt Hypertension Surgical History (Updated 12/08/24 @ 13:16 by Suzy Barroso) H/O wisdom tooth extraction S/P vasectomy (06/14/22) History of surgery on arm (05/17/21) History of tonsillectomy (04/16/99) History of colonoscopy (04/16/15) Social History (Updated 12/05/24 @ 13:09 by Racquel March) adopted: No household members: family housing: house current occupational status: employed current occupational exposures/hazards: No pets and animals: No history of recent travel: No sexually active: Yes Smoking Status: Never smoker Electronic Cigarette Use: not used how long ago did patient quit smoking: second hand exposure alcohol intake: former details: never heavy drinker substance use type: does not use caffeine: No perla/religious: AGNOSTIC seatbelt use: always do you feel safe at home: Yes Vital Signs Vital Signs Vital Signs: 12/17/24 12:46 12/17/24 12:46 12/17/24 13:14 Temperature 97.6 F L 97.6 F L Temperature Source Temporal Pulse Rate 65 65 Respiratory Rate 16 16 Respiratory Pattern Normal Blood Pressure 113/81 H 113/81 H Blood Pressure Mean 91 Pulse Ox 98 98 Oxygen Delivery Method Room Air Weight Weight: 176 lb 5.917 oz Body Mass Index (BMI) 25.2 Physical Exam Const alert, oriented x3 and no apparent distress Assessment & Plan Assessment/Plan (1) Umbilical hernia: PLAN: Plan Plan for umbilical hernia repair surgery without mesh 12/17/24 1334 Cosigner Signature (if applicable): CC: Dr. Genevieve Hercules MD; Dr. Ag Altamirano MD~ Signed [facility]09-03-2025 Consult note [facility] Medical Records Department [address] [place] [address] Pre-Anesthesia Evaluation 12/17/24 1313 MR#: [id number] Acct: [id number] Name: ANDIE CARUSO Rep #:[id number] : 1990 34 From: Deo Manuel MD PCP: Dr. Genevieve Hercules MD Status:REG [facility] Y Race: C Location: [place] [address] ASA Classification* ASA Classification ASA Classification: 1 Assessment & Plan Anesthesia* Anesthesia Assessment Anesthesia Assessment: Discussed sedation and/or anesthesia options, risks, benefits, and alternatives with patient/parents/legal guardian/POA. Questions invited. The patient/parents/legal guardian/POA seems to understand and agrees to proceedwith anesthesia plan. Reviewed the physical assessment, medical history, allergy history and patient home medications list prior to surgery/procedure/anesthetic and documented any changes. Performed airway and anesthesia risk assessments. Anesthesia Type Anesthesia Type: General History Source History Obtained from:: Patient and Chart Anesthesia Focused Assessment* Temperature: 97.6 F Pulse Rate: 65 Blood Pressure: 113/81 Respiratory Rate: 16 Pulse Ox: 98 Airway Assessment Mouth opens: >3 cm Mallampati Score: II Teeth Condition: Intact Neck Range of motion (ROM): Full ROM Labs Anesthesia Preop lab: CBC WBC 5.0 K/mm3 (4.4-11.0) 02/04/24 20:55 02/04/24 RBC 5.08 M/mm3 (4.6-6.2) 02/04/24 20:55 02/04/24 Hgb 14.8 g/dL (13.0-16.5) 02/04/24 20:55 02/04/24 Hct 42.3 % (40-54) 02/04/24 20:55 02/04/24 Plt Count 113 K/mm3 (150-450) L 02/04/24 20:55 02/04/24 CHEMISTRY Potassium 3.5 mmol/L (3.5-5.1) 02/04/24 20:55 02/04/24 Sodium 132 mmol/L (136-145) L 02/04/24 20:55 02/04/24 BUN 14 mg/dL (7-18) 02/04/24 20:55 02/04/24 Creatinine 1.14 mg/dL (0.70-1.30) 02/04/24 20:55 02/04/24 Glucose 115 mg/dL (74-106) H 02/04/24 20:55 02/04/24 COAG Pre-Assessment Diagnosis/Proposed Procedure Planned Operative Procedure(s): OPEN UMBILICAL HERNIA REPAIR Anesthesia History Anesthesia History - supervisor safety deposit: Anesthesia History - supervisor safety deposit Hx Hospitalization No 12/08/24 13:18 Any Problems With Anesthesia No 12/08/24 13:18 Cholinesterase deficiency No 12/08/24 13:18 You/Your Family Experience No 12/08/24 13:18 fever (hyperthermia) with Relationship Recent Exposure to Contagious No 12/17/24 12:46 Disease Does patient have nerve No 12/08/24 13:18 stimulator Patient instructed to have device shut off --Does patient have Pacemaker No 12/17/24 12:46 or ICD? When Was Last Pacemaker Check QUESTION #4 FULL TEXT: You/Your Family Experience fever (hyperthermia) with Anesthesia Last Oral Intake Last Oral intake: Last Oral Intake NPO since 19:00 12/17/24 12:46 Meds taken in AM with sips of No 12/17/24 12:46 water? Meds patient instructed to take am of surgery PONV PONV - supervisor safety deposit: PONV - supervisor safety deposit Female No 12/08/24 13:18 HX of Motion Sickness Yes 12/08/24 13:18 HX of N/V After Surgery No 12/08/24 13:18 Non-Smoker Yes 12/08/24 13:18 Duration of Surgery greater No 12/08/24 13:18 than 60 minutes Number of Risk Factors 2 12/08/24 13:18 PONV Score Moderate Risk 12/08/24 13:18 Height & Weight Height & Weight: Anesthesia: Height & Weight Height 5 ft 10.08 in 12/17/24 12:46 Weight: 80 kg 12/17/24 12:46 Body Mass Index (BMI) 25.2 12/17/24 12:46 Respiratory Assessment Respiratory Assessment - supervisor safety deposit: Respiratory Tract Infection Hx - supervisor safety deposit Hx Respiratory Tract Infection No 12/08/24 13:18 STOP Sleep Apnea STOP Sleep Apnea - supervisor safety deposit: STOP Sleep Apnea - supervisor safety deposit Hx Hypertension No 12/08/24 13:18 Hx Sleep Apnea No 12/08/24 13:18 CPAP BIPAP Do you snore loudly (louder No 12/08/24 13:18 than talking or can be heard Do you often feel tired/ No 12/08/24 13:18 fatigued/ sleepy during daytime? Has anyone observed you stop No 12/08/24 13:18 breathing during sleep? STOP Results Negative 12/08/24 13:18 QUESTION #5 FULL TEXT : Do you snore loudly (louder than talking or can be heard through closeddoors)? 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 Specify any problems Hx of Preganancy in last 3 N/A 12/08/24 13:18 Months Nurse Filling Out Transfusion DSCHRIBER 12/08/24 13:18 & Questions: Date: 12/08/24 12/08/24 13:18 Time: 13:19 12/08/24 13:18 Patient unable to answer at this time (ie. confused, unrespo /Reproduction History /Reproductive History - supervisor safety deposit: /Reproductive Hx- supervisor safety deposit Hx Now No 12/08/24 13:18 Gestational Age (in weeks): EDC: Hx Hx Para Hx Section SAB No 12/08/24 13:18 Active Medications Active Medications: Current Medications Generic Name Dose Route Start Last Admin Trade Name Freq PRN Reason Stop Dose Admin Lactated Ringer's 1,000 mls @ 15 mls/hr 12/17/24 12:45 12/17/24 12:56 IV 15 mls/hr .Q48H BING Administration PFSH Medical History (Updated 12/08/24 @ 13:16 by Suzy Barroso) Wears glasses Non-smoker Anxiety Home Medications ?Medication ?Instructions ?Recorded ?Last Taken ?Type CREATINE 5 mg PO DAILY 12/08/24 Unkno wn History Whey PROTEIN 1 tbsp PO DAILY 12/08/24 Unk nown History Allergy/AdvReac Type Severity Reaction Status Date / Time Seasonal Allergies: Uncoded Allergy Mild unkown Verified 12/08/24 13:09 amoxicillin (From Augmentin) Allergy Unknown PT UNSURE Verified 12/08/24 13:09 OF REACTION clavulanic acid (From Allergy Unknown PT UNSURE Verified 12/08/24 13:09 Augmentin) OF REACTION Family History Mother Age: 55 Depression Hypertension Father Age: 63 Alcoholism Depression Hypertension Brother Age: 40 Alcoholism Depression Hypertension Brother Age: 31 Kidney disease Alcoholism Depression Hypertension Grandmother Age: 83 Anxiety CVA (cerebral vascular accident) Grandfather Depression Suicide attempt CVA (cerebral vascular accident) Grandmother Diabetes Alcoholism Depression Heart disease Mental disorder Suicide attempt Hypertension Surgical History (Updated 12/08/24 @ 13:16 by Suzy Barroso) H/O wisdom tooth extraction S/P vasectomy (06/14/22) History of surgery on arm (05/17/21) History of tonsillectomy (04/16/99) History of colonoscopy (04/16/15) Social History (Updated 12/05/24 @ 13:09 by Racquel March) adopted: No household members: family housing: house current occupational status: employed current occupational exposures/hazards: No pets and animals: No history of recent travel: No sexually active: Yes Smoking Status: Never smoker Electronic Cigarette Use: not used how long ago did patient quit smoking: second hand exposure alcohol intake: former details: never heavy drinker substance use type: does not use caffeine: No perla/religious: AGNOSTIC seatbelt use: always do you feel safe at home: Yes Review of Systems (Anesthesia) ROS Narrative System reviewed and no additional complaints, except as documented. Physical Exam Const alert, oriented x3 and average body habitus Resp normal respiratory effort, normal air movement and clear to auscultation bilaterally Cardio regular rate, regular rhythm and no murmurs 12/17/24 1314 MD> Date _ Deo Manuel MD [facility] Signature: Date CC: ~ Signed [facility]08-22-2025 [facility] [address] [place] [address] OFFICE VISIT Date of Service: 12/05/24 MR#: [id number] Acct: [id number] Name: ANDIE CARUSO Rep #: [id number] : 1990 Provider: Dr. Vikas Altamirano MD Age/Sex: 33/M Location: [facility] Status: Signed Intake Vital Signs 12/01/24 10:52 12/05/24 13:09 Height 5 ft 10 in 5 ft 10 in Weight: 179 lb 6 oz 179 lb BMI 25.7 25.7 BP 112/62 154/78 H Blood Pressure Location Rt brachial Rt brachial Position Sitting Sitting Respiration 16 17 Pulse 45 L 65 Pulse Source Monitor Monitor Temp 96.4 F L Temp Source Temporal Pulse Oximetry (%) 98 99 Oxygen Delivery Method room air room air Intake Visit Reasons: UMBILICAL HERNIA Chief Complaint: hernia check Is patient in pain?: No Allergies Seasonal Allergies: Uncoded Allergy (Mild, Verified 12/05/24 13:10) unkown amoxicillin (From Augmentin) Allergy (Unknown, Verified 12/05/24 13:10) PT UNSURE OF REACTION clavulanic acid (From Augmentin) Allergy (Unknown, Verified 12/05/24 13:10) PT UNSURE OF REACTION Medications ?Medication ?Instructions ?Recorded ?Confirmed ?Type Allergy shots OTHER 07/26/23 12/05/24 Hist ory creatine monohydrate 5,000 mg oral mg PO 12/05/2411/15 History powder packet PFSH Medical History (Updated 12/05/24 @ 13:09 by Racquel March) Anxiety Surgical History H/O wisdom tooth extraction S/P vasectomy (06/14/22) History of surgery on arm (05/17/21) History of tonsillectomy (04/16/99) History of colonoscopy (04/16/15) Family History Mother Age: 55 Depression Hypertension Father Age: 63 Alcoholism Depression Hypertension Brother Age: 40 Alcoholism Depression Hypertension Brother Age: 31 Kidney disease Alcoholism Depression Hypertension Grandmother Age: 83 Anxiety CVA (cerebral vascular accident) Grandfather Depression Suicide attempt CVA (cerebral vascular accident) Grandmother Diabetes Alcoholism Depression Heart disease Mental disorder Suicide attempt Hypertension Social History (Updated 12/05/24 @ 13:09 by Racquel March) adopted: No household members: family housing: house current occupational status: employed current occupational exposures/hazards: No pets and animals: No history of recent travel: No sexually active: Yes Smoking Status: Never smoker Electronic Cigarette Use: not used how long ago did patient quit smoking: second hand exposure alcohol intake: former details: never heavy drinker substance use type: does not use caffeine: No perla/religious: AGNOSTIC seatbelt use: always do you feel safe at home: Yes HPI HPI HPI: The patient is a 33-year-old male who is being seen today for evaluation of a possible umbilical hernia. He states that recently he was attempting to move a washer and dryer and noticed pain and a bulge at the umbilicus. He states that he was able to pop this back in but has had persistent discomfort in this area since. He brought this to the attention of his PCP and he was referred to general surgery for evaluation and treatment of this hernia. ROS General General: No weight change, appetite, fatigue, colon cancer, breast cancer or weakness HEENT HEENT: No difficulty swallowing, eye injury, eye surgery, swollen glands or hoarseness Endo Endocrine: No thyroid disease, diabetes mellitus, thyroid cancer, Hair loss, heat intolerance or cold intolerance Skin Skin: No rash or changing moles Musc Musculoskeletal: No back problems, arthritis, rheumatoid arthritis, gout or joint pain Cardio Cardiovascular: No murmur, pacemaker, heart disease, atrial fibrillation, high blood pressure, heart attack, heart stent, palpitations, shortness of breath with exertion or chest pain Psych Psychiatric: Yes anxiety; No depression or hearing voices Resp Respiratory: No shortness of breath, No sleep apnea, No cough, No COPD, No asthma, No emphysema andNo wheezing Gastro Gastrointestinal: No abdominal pain, No nausea or vomiting, No diarrhea, No constipation, No blood in stool, No acid reflux, No hemorrhoids, No ulcers, No gallbladder problem and No black,tarry stools Christ Hematologic: No blood thinners, No blood disorders, No bleeding, No anemia and No blood clots Neuro Neurologic: No system reviewed and no additional complaints, except as documented, No as per HPI, No abnormal gait, No abnormal hearing, No abnormal movements, No abnormal speech, No behavioral changes, No burning sensations, No confusion, No convulsions, No disequilibrium, No dizziness, No localized weakness, No frequent falls, No headache(s), No lack of coordination, No loss ofvision, No memoryloss, No numbness, No other visual disturbances, No radicular pain, No restless legs, No sensory deficit, No syncope, No tingling, No tremor(s), No weakness and No other Exam Const General: cooperative, comfortable and no acute distress HENMT Head: normal to inspection Eyes General: appearance normal, both eyes and all related structures Neck Neck: normal visual inspection Resp Effort & Inspection: normal respiratory effort and able to speak in complete sentences GI Other: Abdomen is soft, nontender and nondistended. He does have a small umbilical hernia. This appears geraldo fat-containing on examination. He does have mild discomfort with manipulation. I suspect fascialdefect size is probably about 5to 6 mm. This should be amenable to a primary repair Assessment and Plan Assessment and Plan (1) Umbilical hernia: Status: Acute Plan: The patient is a 33-year-old male with a small fat-containing umbilical hernia. I suspect fascial defect size is about 5 to 6 mm and certainly less than a centimeter. I feel that a primary repair is more than sufficient. We discussedthe details of the planned procedure as well as the risks benefitsand alternatives. He wishes to proceed. This will be scheduled in a timely manner. He states that he would like to avoid any home-going narcotic pain medication due to a family history of narcotic addiction. We are certainly amenable to this request. I encouraged him to remind me of the day of the surgery of this request. Coding Level of Care Code Off vis,new,level 4 Diagnoses Umbilical hernia K42.9 12/05/24 1349 k > Date _ [facility] Alt[facility] Signature: Date (if applicable) CC: Dr. Genevieve Hercules MD ~ [facility]08-22-2025 Progress note Author Ag Altamirano [facility] Note Date/Time December 05, 2024 1: 49pm [facility] [address] [place] [address] OFFICE VISIT Date of Service: 12/05/24 MR#: [id number] Acct: [id number] Name: ANDIE CARUSO Rep #: [id number] : 1990 Provider: Dr. Vikas Altamirano MD Age/Sex: 33/M Location: [facility] Status: Signed Intake Vital Signs 12/01/24 10:52 12/05/24 13:09 Height 5 ft 10 in 5 ft 10 in Weight: 179 lb 6 oz 179 lb BMI 25.7 25.7 BP 112/62 154/78 H Blood Pressure Location Rt brachial Rt brachial Position Sitting Sitting Respiration 16 17 Pulse 45 L 65 Pulse Source Monitor Monitor Temp 96.4 F L Temp Source Temporal Pulse Oximetry (%) 98 99 Oxygen Delivery Method room air room air Intake Visit Reasons: UMBILICAL HERNIA Chief Complaint: hernia check Is patient in pain?: No Allergies Seasonal Allergies: Uncoded Allergy (Mild, Verified 12/05/24 13:10) unkown amoxicillin (From Augmentin) Allergy (Unknown, Verified 12/05/24 13:10) PT UNSURE OF REACTION clavulanic acid (From Augmentin) Allergy (Unknown, Verified 12/05/24 13:10) PT UNSURE OF REACTION Medications ?Medication ?Instructions ?Recorded ?Confirmed ?Type Allergy shots OTHER 07/26/23 12/05/24 Hist ory creatine monohydrate 5,000 mg oral mg PO 12/05/2411/15 History powder packet PFSH Medical History (Updated 12/05/24 @ 13:09 by Racquel March) Anxiety Surgical History H/O wisdom tooth extraction S/P vasectomy (06/14/22) History of surgery on arm (05/17/21) History of tonsillectomy (04/16/99) History of colonoscopy (04/16/15) Family History Mother Age: 55 Depression Hypertension Father Age: 63 Alcoholism Depression Hypertension Brother Age: 40 Alcoholism Depression Hypertension Brother Age: 31 Kidney disease Alcoholism Depression Hypertension Grandmother Age: 83 Anxiety CVA (cerebral vascular accident) Grandfather Depression Suicide attempt CVA (cerebral vascular accident) Grandmother Diabetes Alcoholism Depression Heart disease Mental disorder Suicide attempt Hypertension Social History (Updated 12/05/24 @ 13:09 by Racquel March) adopted: No household members: family housing: house current occupational status: employed current occupational exposures/hazards: No pets and animals: No history of recent travel: No sexually active: Yes Smoking Status: Never smoker Electronic Cigarette Use: not used how long ago did patient quit smoking: second hand exposure alcohol intake: former details: never heavy drinker substance use type: does not use caffeine: No perla/religious: AGNOSTIC seatbelt use: always do you feel safe at home: Yes HPI HPI HPI: The patient is a 33-year-old male who is being seen today for evaluation of a possible umbilical hernia. He states that recently he was attempting to move a washer and dryer and noticed pain and a bulge at the umbilicus. He states that he was able to pop this back in but has had persistent discomfort in this area since. He brought this to the attention of his PCP and he was referred to general surgery for evaluation and treatment of this hernia. ROS General General: No weight change, appetite, fatigue, colon cancer, breast cancer or weakness HEENT HEENT: No difficulty swallowing, eye injury, eye surgery, swollen glands or hoarseness Endo Endocrine: No thyroid disease, diabetes mellitus, thyroid cancer, Hair loss, heat intolerance or cold intolerance Skin Skin: No rash or changing moles Musc Musculoskeletal: No back problems, arthritis, rheumatoid arthritis, gout or joint pain Cardio Cardiovascular: No murmur, pacemaker, heart disease, atrial fibrillation, high blood pressure, heart attack, heart stent, palpitations, shortness of breath with exertion or chest pain Psych Psychiatric: Yes anxiety; No depression or hearing voices Resp Respiratory: No shortness of breath, No sleep apnea, No cough, No COPD, No asthma, No emphysema and No wheezing Gastro Gastrointestinal: No abdominal pain, No nausea or vomiting, No diarrhea, No constipation, No blood in stool, No acid reflux, No hemorrhoids, No ulcers, No gallbladder problem and No black,tarry stools Christ Hematologic: No blood thinners, No blood disorders, No bleeding, No anemia and No blood clots Neuro Neurologic: No system reviewed and no additional complaints, except as documented, No as per HPI, No abnormal gait, No abnormal hearing, No abnormal movements, No abnormal speech, No behavioral changes, No burning sensations, No confusion, No convulsions, No disequilibrium, No dizziness, No localized weakness, No frequent falls, No headache(s), No lack of coordination, No loss ofvision, No memory loss, No numbness, No other visual disturbances, No radicular pain, No restless legs, No sensory deficit, No syncope, No tingling, No tremor(s), No weakness and No other Exam Const General: cooperative, comfortable and no acute distress [facility] Head: normal to inspection Eyes General: appearance normal, both eyes and all related structures Neck Neck: normal visual inspection Resp Effort & Inspection: normal respiratory effort and able to speak in complete sentences GI Other: Abdomen is soft, nontender and nondistended. He does have a small umbilical hernia. This appears to be fat-containing on examination. He does have mild discomfort with manipulation. I suspect fascial defect size is probably about 5to 6 mm. This should be amenable to a primary repair Assessment and Plan Assessment and Plan (1) Umbilical hernia: Status: Acute Plan: The patient is a 33-year-old male with a small fat-containing umbilical hernia. I suspect fascial defect size is about 5 to 6 mm and certainly less than a centimeter. I feel that a primary repair is more than sufficient. We discussedthe details of the planned procedure as well as the risks benefits and alternatives. He wishes to proceed. This will be scheduled in a timely manner. He states that he would like to avoid any home-going narcotic pain medication due to a family history of narcotic addiction. We are certainly amenable to this request. I encouraged him to remind me of the day of the surgery of this request. Coding Level of Care Code Off vis,new,level 4 Diagnoses Umbilical hernia K42.9 12/05/24 1349 <Electronically signed by Ag baumann MD> Date _ Ag Altamirano MD Cosigner Signature: Date (if applicable) CC: Dr. Genevieve Hercules MD ~ [facility] Work Phone: [phone]) 780-647608-18-2025 Evaluation note* Diagnosis Onset Date Resolution Status Admit Date Screening for depression noneactive December 01, 2024 10:46am Screening for cardiovascular condition noneactive December 01 10:46am Umbilical hernia without obstruction and without gangrene noneactive December 01 10:46am Seasonal allergies noneactive December 01, 2024 10:46am Umbilical hernia acute November 152024 1:02pm [facility] Work Phone: [phone]) 216-875608-18-2025 Evaluation note* Diagnosis Onset Date Resolution Status Admit Date Screening for depression noneactive December 01, 2024 10:46am Screening for cardiovascular condition noneactive December 01 10:46am Umbilical hernia without obstruction and without gangrene noneactive December 01 10:46am Seasonal allergies noneactive December 01, 2024 10:46am Umbilical hernia acute November 152024 1:02pm Umbilical hernia acute Sept2024 12:25pm [facility] Work Phone: Consult note Author Donny Rosales [facility] Note Date/Time December 17, 2024 2:45pm [facility] Medical Records Department [address] [place] [address] Anesthesia Postop Eval I 12/17/24 1444 MR#: [id number] Acct: [id number] Name: ANDIE CARUSO Rep #:[id number] : 1990 34 From: Donny Rosales CRNA PCP: Dr. Genevieve Hercules MD Status:REG SDC Y Race: C Location: [place] [address] Anesthesia: Postop Eval I Current Vital Signs Temperature: 97.4 F Pulse Rate: 79 Blood Pressure: 120/60 Respiratory Rate: 16 Pulse Ox: 93 Oxygen Delivery Method: Room Air Assessment Airway patent: Yes Spontaneous unlabored respirations: Yes Mental status: Asleep nausea: No Vomiting: No Anesthesia Complication: No Fluid Hydration Crystalloid volume administer (ml): 900 Total IV fluid infused: 900 Progress Note Anesthesia document: Postop Eval 1 completed: Yes 12/17/24 1445 <Electronically signed by Donny li CRNA> Date _ Donny Rosales CRNA Cosigner Signature: Date CC: ~ Signed [facility] Work Phone: Consult note [facility] Note Date/Time December 17, 2024 3:49pm [facility] Medical Records Department [address] [place] [id number] Anesthesia Postop Eval II 12/17/24 1515 MR#: [id number] Acct: [id number] Name: ANDIE CARUSO Rep #:[id number] : 1990 34 From: Deo Manuel MD PCP: Dr. Genevieve Hercules MD Status:REG [facility] Y Race: C Location: [place] [address] Anesthesia Postop Eval I Sum Postop Eval Completion status Anesthesia document: Postop Eval 1 completed: Yes Anesthesia Postop Eval I Summary Anesthesia Postop Eval I Summary: Anesthesia Postop Eval I: Assessment Summary Airway patent Yes 12/17/24 14:45 [email or web address] Spontaneous unlabored Yes 12/17/24 14:45 [email or web address] respirations Mental status Asleep 12/17/24 14:45 [email or web address] nausea No 12/17/24 14:45 [email or web address] Vomiting No 12/17/24 14:45 [email or web address] Anesthesia Postop Eval I: Fluid Summary Crystalloid volume administer 900 12/17/24 14:45 [email or web address] (ml) Colloids volume administered ( ml) Blood Product volume administered (ml) Total IV fluid infused 900 12/17/24 14:45 [email or web address] Anesthesia Postop Eval I: Summary Notes Anesthesia Complication No 12/17/24 14:45 [email or web address] Anesthesia Complication Comment: Post-operative progress note Anesthesia: Postop Eval II Evaluation Mental status: Awake Pain Level: 0 nausea: No Vomiting: No Complications Anesthesia Complication: No 12/17/24 3151 <Electronically signed by Deo Manuel MD> Date _ Deo Manuel MD Cosigner Signature: Date CC: ~ Signed [facility] Work Phone: Discharge summary Author Ag Altamirano [facility] Note Date/Time December 17, 2024 2:47pm [facility] Medical Records Department [address] [place] [address] Instructions for Home/Discharge Instructions 12/17/24 1444 MR#: [id number] Acct: [id number] Name: ANDIE CARUSO Rep #:[id number] : 1990 34 From: Ag Altamirano MD PCP: Dr. Genevieve Hercules MD Status:REG [facility] Discharge Instructions Diet Discharge Diet: Light diet - advance as tolerated Activity Discharge Activity: Return to Normal Activity and May Shower May shower in (days): 1 Ice area for (Minutes): 30 Lifting Restrictions: No lifting pushing or pulling more than 20 pounds for 6 weeks Dressing / Incision Call your doctor if your incision/area has: Continuous Slow Oozing, Sudden Increased Bleeding, Increased Pain/ Swelling, Increased Redness, Foul Smelling Discharge and Swelling at the incision site Call your doctor if you observe: Fever of 101 or Higher Cleanse incision/area with: Soap & Water Follow Up Care Please Follow Up With: Ag Altamirano MD When: 2 weeks. Please call office to schedule appointment. Test Results: Test results from this visit will be discussed in further detail at your follow- up appointment, if applicable. Discharge Plan Admission Primary Reason for Your Visit: Umbilical hernia repair Attending Provider: Ag Altamirano Primary Care Provider: Genevieve Hercules Instructions Print Language: Finnish Discharge Orders/Prescriptions Prescriptions: Continued CREATINE 5 mg PO DAILY Whey PROTEIN 1 tbsp PO DAILY Referrals / Follow Up: Genevieve Hercules MD [Primary Care Provider] - Disposition Disposition (needs filled in before D/C Order can be placed): Home, Self Care 12/17/24 6717<Electronically signed by Ag Altamirano MD>Ag Altamirano MD CC: Dr. Genevieve Hercules MD ~ Signed [facility] Work Phone: Evaluation + Plan note Future Appointments [facility] Evaluation note* Diagnosis Onset Date Resolution Status Admit Date Umbilical hernia without obstruction and without gangrene noneactive December 01 10:46am Seasonal allergies noneactive December 01, 2024 10:46am [facility] Work Phone: Hospital course Narrative No data available for this section [facility] Hospital Discharge instructions No data available for this section [facility] Hospital Discharge instructionsAmbulatory Orders* General Surgery Location: None Selected [facility] Work Phone: Chief Complaint and Reason for Visit Chief Complaint Admit Date Possible hernia? December 01, 2024 10 :46am Reason for Visit Admit Date Umbilical hernia without obstruction and without gangrene December 01, 2024 10:46am Seasonal allergies December 01, 2024 10 :46am Chief Complaint Admit Date Possible hernia? December 01, 2024 10 :46am UMBILICAL HERNIA December 05, 2024 1: 02pm Reason for Visit Admit Date Screening for depression December 01 10:46am Screening for cardiovascular condition [facility] 2024 10:46am Umbilical hernia without obstruction and without gangrene December 01, 2024 10:46am Seasonal allergies December 01, 2024 10 :46am Umbilical hernia December 05, 2024 1: 02pm Chief Complaint Admit Date Possible hernia? December 01, 2024 10 :46am UMBILICAL HERNIA December 05, 2024 1: 02pm Hernia,Open Umbilical Repair December 172024 12:25pm Hernia,Open Umbilical Repair December 172024 1:33pm Reason for Visit Admit Date Screening for depression December 01 10:46am Screening for cardiovascular condition [facility] 2024 10:46am Umbilical hernia without obstruction and without gangrene December 01, 2024 10:46am Seasonal allergies December 01, 2024 10 :46am Umbilical hernia December 05, 2024 1: 02pm Umbilical hernia December 17, 2024 12:25pm Family History Relationship Condition Age at Onset Recorded Date/T christopher mother Depression Unknown Hypertension Unknown father Alcoholism Unknown Depression Unknown brother Alcoholism Unknown brother Disorder of kidney Unknown Alcoholism Unknown grandmother Anxiety Unknown Cerebrovascular accident (CVA) Unknown grandfather Depression Unknown Attempted suicide Unknown grandmother Diabetes mellitus Unknown Heart disease Unknown Mental disorder Unknown Summary Purpose Advance Directives Advance Directive Response Recorded Date/ Time Do you have a Healthcare Power of Automotive Assembler? No 2024 1:18pm Additional Source Comments Care Teams (unrecognized sec tion and content) Team Status: Active Member Role/Relationship Status Dates Dr. Genevieve Hercules MD Primary Care Provider Active Team Status: Inactive Member Role/Relationship Status Dates Dr. Genevieve Hercules MD Primary Care Provider Active Start: December 01, 2024 End: December 01, 2024 Dr. Genevieve Hercules MD Attending Provider Active Start: December 01, 2024 End: December 01, 2024 Dr. Genevieve Hercules MD Referring Provider Active Start: December 01, 2024 End: December 01, 2024 Team Status: Inactive Member Role/Relationship Status Dates Dr. Genevieve Hercules MD Primary Care Provider Active Start: December 05, 2024 End: December 05, 2024 Dr. Genevieve Hercules MD Referring Provider Active Start: December 05, 2024 End: December 05, 2024 Dr. Ag Altamirano MD Attending Provider Active Start: December 05, 2024 End: December 05, 2024 Team Status: Inactive Member Role/Relationship Status Dates Dr. Genevieve Hercules MD Primary Care Provider Active Start: December 17, 2024 End: December 17, 2024 Dr. Ag Altamirano MD Attending Provider Active Start: December 17, 2024 End: December 17, 2024 Dr. Ag Altamirano MD Referring Provider Active Start: December 17, 2024 End: December 17, 2024 Team Status: Active Member Role/Relationship Status Dates Dr. Genevieve Hercules MD Primary Care Provider Active Start: December 17, 2024 Dr. Ag Altamirano MD Attending Provider Active Start: December 17, 2024 Dr. Ag Altamirano MD Referring Provider Active Start: December 17, 2024 Dr. Ag Altamirano MD Other Provider Active St art: December 17, 2024 Goals (unrecognized section and content) Goals may be documented in a n alternate section (unrecognized sect ion and content) No Status Records Found INFORMATION SOURCE (unrecogn ized section and content) DATE CREATED AUTHOR 12/17/2024 [facility] FOR RECORDS PERTAINING TO PATIENTS WHO ARE [...] BASED ON THE PRIMARY CLINICAL RECORDS. [facility] [employer] provides no warranty or guarantee of the accuracy or completeness of information in this document.
== END 2024-12-17 15:49 | disposition home or self-care (01) ==
LOC: SDC 12:32 → AC 12:33
PROVIDERS: PCP Internal Medicine; Referring Provider Surgery; Visit Provider Surgery
PROC: (CPT 49591; principal; 2024-12-17 13:45)
DX: K42.9 Umbilical hernia without obstruction or gangrene (principal)
CPT/HCPCS: 49591; 00830; J2405

== ENCOUNTER → 2025-01-02 | Outpatient (CLI) | payer OTHER, SELFPAY ==
[2025-01-02 12:46] LABS: Hematocrit 46.1 % (40-54); Hemoglobin 15.6 g/dL (13.0-16.5); Immature Granulocytes Count 0.030 X10^3/uL (0.0-0.0); Mean Corp Hgb Conc 33.8 g/dL (32-36); Mean Corpuscular Volume 86.5 fL (80-94); Mean Platelet Vol. 11.7 fl (6.2-12.0); NRBC Flagged by Analyzer 0 % (0-5); POSITIVE DIFFERENTIAL YES; Platelet Count 216 K/mm3 (150-450); RBC Distribution Width CV 13.3 % (11.6-14.6); RBC Distribution Width SD 40.9 fl (35.1-43.9); Red Blood Count 5.33 M/mm3 (4.6-6.2); White Blood Count 10.1 K/mm3 (4.4-11.0)
[2025-01-02 12:50] LABS: Differential Indicated SCAN CRITERIA MET
[2025-01-02 13:20] LABS: AST(SGOT) 31 U/L (<=37); Alanine Aminotransfer ALT/SGPT 21 U/L (<=46); Albumin, Serum 4.1 g/dL (3.5-5.0); Alkaline Phosphatase 82 U/L (40-129); Anion Gap 12 (5-15); BUN 13 mg/dL (4-19); BUN/Creat Ratio 15.0 RATIO (10-20); Calcium,Total 9.6 mg/dL (7.6-11.0); Carbon Dioxide 21.9 mmol/L (21.0-32.0); Chloride 105 mmol/L (98-108); Cholesterol 193 mg/dL (<=200); Globulin 2.9 g/dL (2.2-4.2); Glucose 91 mg/dL (70-99); Low Density Lipoprotein Calc. 139 mg/dL; Potassium 4.3 mmol/L (3.3-5.1); Triglycerides 59 mg/dL; Very Low Density Lipoprotein 12 mg/dL (5-40); cholesterol:hdl ratio screen 4.60
== END | disposition home or self-care (01) ==
LOC: BIMLAB 08:34
PROVIDERS: PCP Internal Medicine; Referring Provider Internal Medicine; Visit Provider Internal Medicine
DX: J30.2 Other seasonal allergic rhinitis (principal); K42.9 Umbilical hernia without obstruction or gangrene; Z13.6 Encounter for screening for cardiovascular disorders
CPT/HCPCS: 36415; 80053; 80061; 85025